=== PATIENT | female | born 1940 | race Caucasian/White ===

== ENCOUNTER → 2019-03-24 12:27 | Outpatient (CLI) | payer MEDICARE, OTHER, SELFPAY ==
--- NOTE | 2019-03-24 | DI.MRI.S_ITS ---
PROCEDURE: MR KNEE LT WO CON INDICATIONS: Pain in left knee TECHNIQUE: Noncontrast sagittal PD fast spin echo and T2 fast spin echo with fat saturation, sagittal 3-D FLASH with fat saturation; coronal T1 spin echo and PD fast spin echo with fat saturation, and axial PD fast spin echo with fat saturation through the knee. COMPARISON: [facility], CR, XR KNEE ARTHRITIC SERIES BI, 03/14/2019, 11:31. [facility], MR, KNEE WITHOUT CONTRAST, 01/14/2017, 10:03. FINDINGS: Image quality: Excellent. Menisci: Medial meniscal tear involving the posterior horn and body with abnormal signal extending to the undersurface. Macerated circumferential lateral meniscal tear involving anterior horn body and posterior horn. Associated 5 mm parameniscal cyst seen involving the posterior horn on image 24 series 7. Partial extrusion is also noted. Cruciate ligaments: Anterior cruciate ligament not well seen and presumably ruptured. Posterior cruciate ligament appears intact although some internal signal changes suggesting low-grade mucoid degeneration versus age-indeterminate mild sprain. Medial structures: There is medial bowing of the medial collateral ligament, with mild internal signal changes and no complete rupture. There is adjacent soft tissue edema. The appearance could reflect reactive changes to medial compartment pathology, versus low-grade sprain of the MCL. Pes anserinus tendons appear grossly unremarkable. Semimembranosus tendon appears mildly thickened and T2 hyperintense in keeping with insertional tendinopathy. Lateral structures: The lateral collateral ligament demonstrates thickening and intrasubstance signal change in keeping with low grade sprain, statistically chronic, although technically age indeterminate. Biceps femoris tendon appears intact. Popliteus tendon grossly unremarkable. Iliotibial band appears intact. Anterior structures: Quadriceps tendon intact. Medial and lateral patellofemoral ligaments intact. There is mild patellar tendinopathy. Prepatellar and superficial infrapatellar subcutaneous edema/fluid. Bones and cartilage: No focal marrow contusion or discrete low signal fracture line. Within the medial compartment, diffuse partial thickness loss of the femoral intra-articular cartilage. Degenerative subchondral cystic change present in the peripheral tibial plateau Within the lateral compartment, diffuse full-thickness loss of femoral and tibial articular cartilage Within the patellofemoral compartment, diffuse partial thickness loss of the femoral trochlear and patellar cartilage Joint space: Large joint effusion. Large Padilla's cyst measuring approximately 6-7 cm in the cephalocaudad dimension. No specific evidence of intra-articular loose body. IMPRESSION: Rupture of the anterior cruciate ligament although this finding may be chronic. Macerated circumferential lateral meniscal tear with partial extrusion and associated para meniscal cyst abutting the posterior horn. Undersurface tear involving the body and posterior horn of the medial meniscus. Mild patellar tendinopathy. Large joint effusion. Large Padilla's cyst. Degenerative joint disease as above. Insertional semimembranosus tendinopathy. Dictated by: Abdias Leo M.D. on 03/24/2019 at 14:42 Approved by: Abdias Leo M.D. on 03/24/2019 at 14:50
== END ==
PROVIDERS: PCP Family Medicine; Visit Provider Orthopaedic Surgery
DX: M25.562 Pain in left knee (principal); S83.242A Other tear of medial meniscus, current injury, left knee, initial encounter; S83.282A Other tear of lateral meniscus, current injury, left knee, initial encounter; S83.512A Sprain of anterior cruciate ligament of left knee, initial encounter; M17.12 Unilateral primary osteoarthritis, left knee; M71.22 Synovial cyst of popliteal space [Baker], left knee; M25.462 Effusion, left knee
CPT/HCPCS: 73721

== ENCOUNTER 2019-06-08 16:47 | Inpatient (IN) | payer MEDICARE, OTHER, SELFPAY ==
[2019-05-25 13:55] VITALS: BMI 28.8
[2019-06-07] VITALS (14 sets, daily range): BP systolic 103–149; BP diastolic 49–79; PULSE 63–82; RESP 12–19; TEMP 36–36.9; O2SAT 91–99; BMI 28.8
--- NOTE | 2019-06-07 06:00 | DI.RAD.S_ITS ---
PROCEDURE: XR KNEE LT 1TO2V INDICATIONS: post op TECHNIQUE: 2 view(s) of the knee acquired. COMPARISON: [facility], , KNEE 1-2 VIEWS RIGHT, 02/24/2017, 13:06. FINDINGS: Bones: Patient is status post knee joint arthroplasty. Hardware components are in expected positions. Visualized bony structures are intact. Soft tissues: Overlying postoperative changes are noted. IMPRESSION: Expected appearance of left knee arthroplasty. Dictated by: Stacy Rowan M.D. on 06/07/2019 at 18:20 Approved by: Stacy Rowan M.D. on 06/07/2019 at 18:20
[2019-06-07] MEDS: PREGABALIN 75 MG CAPSULE PO (11:54)
[2019-06-07] MEDS: ACETAMINOPHEN 325 MG TABLET 975 MG PO (11:54)
[2019-06-07] MEDS: CELECOXIB 200 MG CAPSULE PO (11:55)
[2019-06-07] MEDS: LACTATED RINGERS 1,000 ML 42 ML IV ×2 (11:56→16:35)
[2019-06-07] MEDS: VANCOMYCIN 1,000 MG/200 ML PIGGYBACK 200 MG IV (13:35)
--- NOTE | 2019-06-07 15:07 | PM.PREOP ---
Pre-operative Note Interval Note History & Physical reviewed/Exam performed by Physician: Yes Changes to H&P: No
--- NOTE | 2019-06-07 15:08 | P.OP_ITS ---
Operative Date/Time/Diagnoses Date of procedure: 06/07/19 Time of procedure: 15:20 Pre-op diagnosis: Severe left knee osteoarthritis Post-op diagnosis: same Procedure & Clinicians Procedure: Left total knee arthroplasty Same procedure as scheduled: Yes Indications: The patient has had progressively worsening left knee pain with radiographic changes consistent with arthritis. Non-operative management has failed and the patient has requested total knee replacement. The risks, benefits and alternatives to surgery were discussed with the patient prior to proceeding. Risks discussed included, but were not limited to, failure to relieve pain, stiffness, infection, nerve damage, deep venous thrombosis, pulmonary embolism, stroke, coma, heart attack, permanent paralysis and , as well as the potential need for eventual revision of the prosthetic. Surgeon: Delphine Frazier Electron Beam Photo Mask Maker: Young Teixeira Anesthesia Type: General and Spinal Operative Notes Closure Type: primary Specimen(s): none sent Prosthetic devices, grafts, tissues, transplants, or devices: Frazier and Nephew Journey BCS 2 size 6 femur, size 4 tibia, +10 poly, 35 mm patella Applied: drain(s) Estimated Blood Loss (mL): 250 Blood products transfused: none Tourniquet time (min): 82 Procedure in detail: The patient was seen in the pre-operative area, where the patient identified the left knee as the operative site and this was marked with my initials. The patient received pre-operative antibiotics, and was taken to the operating room and placed on the operative table in the supine position. After satisfactory anesthesia, a aircraft de icer installer out was performed. The left leg was encircled with a tourniquet about the proximal thigh, and the leg was prepared from the toes to the tourniquet with ChloroPrep in the usual fashion and draped through sterile drapes. The leg was elevated and exsanguinated with Eschmark bandage and the tourniquet inflated to [250] mmHg pressure. The knee was approached through an approximately 18 cm incision centered over the patella and carried into the knee through a medial parapatellar arthrotomy. A portion of the medial and lateral meniscus was resected. Soft tissue was carefully mobilized around the patella the patella was measured with a caliper. Bone was resected from the patella and the patellar height was reconstituted with up an appropriate sized patellar component. A cover was then placed on the patella. A small amount of additional medial and lateral meniscus was resected. The visionare guide fit well to the distal femur. It looked like an appropriate distal femoral cut and the cut was made without difficulty. The rotation was assessed and the appropriate size femoral guide was placed on the distal femur and finishing cuts were made. There was no evidence of notching. The anterior, posterior and chamfer cuts were then made. The posterior osteophytes and soft tissues were then removed. The posterior capsule was injected with part of a mixture of 60 ml 0.25% Marcaine mixed with 20 ml Exparel for post operative pain control. The remainder of this mixture was injected into the capsule and subcutaneous tissues during cement curing. The tibia was prepared and the visionaire guide fit well to the distal tibia. The rotation was assessed. The patient was placed in extension residual medial and lateral meniscus as well as any residual bone was carefully resected. [No] additional tibia was resected. Hemostasis was achieved especially posteriorly. Additional local was injected into the posterior capsule. The extension gap was assessed and additional releases for gap balancing were performed as necessary. It was checked with the gap welder operator. The femoral component was trial was placed and the notch was finished. Trial tibial and femoral components were then placed and the knee placed through a range of motion. Range of motion was [0-130], with good stability throughout the range. The trials were then removed, and the tibia was finished. The bone was prepared with pulsatile lavage, and dried with a sponge. Cement was applied and the final prosthetics placed. Excess cement was removed during and after cement curing. A brief Betadine soak was performed. After confirming there was no extruded cement posteriorly, the final tibial insert was placed. The knee was copiously irrigated and the tourniquet deflated. Hemostasis was obtained with the Bovie. A drain was placed and brought out superolaterally. The capsule was closed with interrupted Vicryl suture. The subcutaneous layer was closed with barbed sutures, and the skin with a running 3-0 V-Lock suture and Surgical glue. An Aquacel Ag dressing was applied and the patient was taken to recovery having tolerated the procedure well. Complications: none Post-operative Condition: stable Disposition: Acute Care Plan for aftercare: The patient will be maintained on a standard total knee replacement protocol with weight bearing as tolerated. The patient will receive aspirin and sequential compression devices for DVT prophylaxis. The patient will be discharged home when safe for the home environment.
[2019-06-07] MEDS: CEFAZOLIN 2 GM/100 ML FROZ.PIGGY IV ×2 (15:15→22:17)
--- NOTE | 2019-06-07 15:49 | SUR.OPER ---
Supine on padded OR bed. Pillow under head, arms secured on padded armboards <90 degree abduction. Safety belt across torso. Non-operative leg secured with tape over blanket over lower leg. Operative leg secured in DeMayo/Cristo positioner. Foam padded brace at thigh of operative leg.
[2019-06-07] MEDS: BUPIVACAINE 0.25% W/ EPI (PF) 10 ML VIAL 60 ML INJ (16:00)
[2019-06-07] MEDS: SODIUM CHLORIDE IRRIG SOLUTION 250 ML, POVIDONE-IODINE SPONGE STICKS 1 APPLIC IRR (16:01)
[2019-06-07] MEDS: BUPIVACAINE LIPOSOME 266 MG/20 ML VIAL INJ (16:01)
[2019-06-07] MEDS: TRANEXAMIC ACID 1,000 MG VIAL 1000 MG INJ ×2 (16:01→16:36)
[2019-06-07] MEDS: HYDROMORPHONE 2 MG INJ IV (17:59)
--- NOTE | 2019-06-07 18:19 | SUR.PHASEI ---
Gave pain medication for c/o knee pain. Tolerating po. Refused po pain medication. States it only constipates her. States IV Dilaudid works better.
[2019-06-07] MEDS: LACTATED RINGERS 1,000 ML 125 ML IV (19:05)
[2019-06-07] MEDS: ONDANSETRON 4 MG/2 ML INJ IV (21:19)
[2019-06-08] MEDS: HYDROMORPHONE 2 MG TABLET 4 MG PO ×5 (03:01→21:50)
[2019-06-08] MEDS: LACTATED RINGERS 1,000 ML 125 ML IV (03:07)
[2019-06-08] MEDS: IBUPROFEN 400 MG TABLET PO ×4 (04:39→20:38)
[2019-06-08] MEDS: LEVOTHYROXINE 125 MCG TABLET PO (05:12)
[2019-06-08] MEDS: CEFAZOLIN 2 GM/100 ML FROZ.PIGGY IV (06:24)
[2019-06-08 06:31] VITALS: BP 111/60; PULSE 65; RESP 16; TEMP 36.8; O2SAT 97
[2019-06-08 07:15] LABS: Hematocrit 29.6 % (36-46); Hemoglobin 10.2 g/dL (12.0-16.0)
[2019-06-08 07:56] VITALS: BP 127/62; PULSE 62; RESP 16; TEMP 36.3; O2SAT 94
[2019-06-08] MEDS: DOCUSATE 100 MG CAPSULE PO ×2 (09:41→20:38)
[2019-06-08] MEDS: METFORMIN XR 500 MG TABLET PO (09:41)
[2019-06-08] MEDS: FERROUS SULFATE 325 MG TABLET PO (09:42)
[2019-06-08] MEDS: ACETAMINOPHEN 325 MG TABLET 650 MG PO ×3 (09:42→20:38)
[2019-06-08] MEDS: ASPIRIN EC 81 MG TABLET PO ×2 (09:43→20:38)
--- NOTE | 2019-06-08 10:18 | PT.IIE ---
Current Diagnoses Unilateral primary osteoarthritis, left knee (06/07/19) Surgery Performed Operation Date: 06/07/19 13:15 Actual Procedures p Total Knee Arthroplasty(Left) - Delphine Frazier MD Surgical History (Last Updated 05/25/19 @ 14:46 by Yanira Krueger, RN) History of arthroplasty of right knee (Acute 02/24/17) Medical History (Last Updated 05/25/19 @ 14:46 by Yanira Krueger RN) Allergic rhinitis (Acute) Anemia (Acute) Arthritis (Acute) Asthma (Acute) Bilateral cataracts (Acute) Former smoker (Acute) Influenza (Acute ~07/2018) Irregular heart beats (Acute) Lung nodule seen on imaging study (Acute ~12/2018) Old inferior wall myocardial infarction (Acute) Pneumonia (Acute ~08/2018) UTI (urinary tract infection) (Acute) Physical Therapy Inpatient Evaluation/Re-Eval M1 PT/OT-IP Prior Functional Status Start: 06/08/19 12:03 Freq: NEEDED Status: Active Protocol: Document 06/08/19 10:18 AB (Rec: 06/08/19 12:22 AB [id number]) Medical Review Prior Functional Status Medical History Reviewed Yes Communication able to make needs known Mobility and Gait pt stated that she is modified independent with all mobilities and ambulation without AD but occasionally uses a SPC depending on knee pain Social History Household Members spouse,children Living Arrangements House Number of Floors (Floors) Two Floors Number of Stairs To Enter/Railing? 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; son from [place] will stay with pt to assist M2 PT-IP Current Condition Start: 06/08/19 12:03 Freq: NEEDED Status: Active Protocol: Document 06/08/19 10:18 AB (Rec: 06/08/19 12:22 AB [id number]) Physical Therapy Current Condition Current Condition Evaluation Date 06/08/19 Treatment Diagnosis s/p L TKA; difficulty in walking Onset Date 06/07/2019 Weight Bearing Status Weight Bearing Status Weight Bear as Tolerated Allowed Weight Bearing Amount (enter % LLE WBAT or #) (%) M3 PT-IP Subjective Start: 06/08/19 12:03 Freq: NEEDED Status: Active Protocol: Document 06/08/19 10:18 AB (Rec: 06/08/19 12:22 AB [id number]) Subjective Physical Therapy Visit Type Type Initial Evaluation Visit Start Time 10:18 Visit Stop Time 10:52 Total Visit Minutes 34 Number of TRANSIT MIXER OPERATOR Visits 0 Physical Therapy Visit Comments Patient Comments pt agreeable to do PT Therapy Pain Assessment Pain When Pain Assessed During Mobility Pain Present Pain Present Pain Reported Location Left Knee Scale Used pain scale not stated but c/o nausea due to pain Pain Management Techniques Apply Cold,Re-positioning, Timing of Activity with Medications M4 PT-IP Mobility and Gait Start: 06/08/19 12:03 Freq: NEEDED Status: Active Protocol: Document 06/08/19 10:18 AB (Rec: 06/08/19 12:22 AB [id number]) PT-Bed Mobility Assessment Sit to Supine Sit to Supine Standby Assistance,1 Person Assistance PT-Transfer Assessment Sit to and From Stand Sit to and from Stand Minimal Assistance,1 Person Assistance,Use of Upper Extremities Equipment Transfer Assistive Device Gait Belt,Front Wheeled Walker Orthotic/Prosthetic Devices or Brace: No Transfers Transfer Destination Bed Transfer Technique ambulated using FWW Transfer Ability Level of Assist Minimal Assistance,1 Person Assistance,Use of Upper Extremities Comments Mobility Comments pt sitting on chair and stated no pain at rest. completed sit to stand min A and cues. c/o increase knee pain during mobility and weight bearing. instructed to ambulated to the bed and midway of ambulation c/o nausea and stated that her pain is too much. instructed to ambulated to the bed to sit and completed min A and cues. pt requested to just stay in bed. completed sit to supine SBA. positioned in bed. call light and table placed within reach. informed nurse that pt c/o increase pain and at this time, not ready to d/c home. Gait Assessment Gait Gait Assistance Required: Minimum Assistance Distance (Feet) 12 Able to Maintain Weight Bearing Status Yes During Gait Assistive Devices Assistive Device Gait Belt,Front Wheeled Walker Orthotic/Prosthetic Devices or Brace: No Gait Deviations General Gait Pattern Antalgic,Decreased Stride Length,Decreased Feet Clearance,Step-to Gait Factors Limiting Gait Function Factors Limiting Gait Function Decreased Activity Tolerance, Decreased Strength,Limited Range of Motion,Pain,Poor Balance Comments Gait Comments pls refer to mobility section. PT-Balance Assessment Sitting Balance and Reactions Static Sitting Balance Ability Good Dynamic Sitting Balance Ability Good Standing Balance and Reactions Static Standing Balance Ability Fair Dynamic Standing Balance Ability Fair Device Used FWW M5 PT-IP Objective Assessments Start: 06/08/19 12:03 Freq: NEEDED Status: Active Protocol: Document 06/08/19 10:18 AB (Rec: 06/08/19 12:22 AB [id number]) Orientation Orientation/Cognition Level of Alertness Alert Orientation Name,Place,Situation Safety Awareness Decreased Safety Awareness Memory Description Short Term Impaired Gross Range of Motion Lower Extremity ROM Impairments L knee flexion: ~ 80 deg Strength Lower Extremity Strength Assessment Left Impaired Hip 3+/5 Knee 3+/5 Coordination Assessment Gross Coordination Gross Coordination WNL Sensation Assessment Sensation Gross Sensation WNL Muscle Tone Muscle Tone WNL Yes M6 PT-IP Treatment Start: 06/08/19 12:03 Freq: NEEDED Status: Active Protocol: Document 06/08/19 10:18 AB (Rec: 06/08/19 12:22 AB [id number]) Physical Therapy Treatment Education Education Provided Precautions,Weight Bearing Status,Post-Op Packet,Safety M7 PT-IP Assessment and Plan Start: 06/08/19 12:03 Freq: NEEDED Status: Active Protocol: Document 06/08/19 10:18 AB (Rec: 06/08/19 12:22 AB [id number]) PT Summary Assessment and Plan Potential Rehabilitation Potential Good Status of Condition at Evaluation Evolving Summary Impairments Pain,ROM,Strength,Balance, Coordination,Bed Mobility, Transfers,Gait,Activity Tolerance Assessment Summary pt unable to tolerate much activity this morning with c/o nausea due to increase knee pain. pt requires min A for transfers and was only able to ambulate ~ 12 ft using FWW. d/c plan depending on progress . will continue to assess progress. Goals Bed Mobility Goal Independent Transfer Goal Independent,Front Wheeled Walker Gait Goal Independent,Front Wheel Walker Gait Distance 150 Other Goals up/down 20 steps R rail ascending SBA Days to Meet Goals 5 Frequency of Treatment Frequency Of Treatment Twice a Day Treatment Plan Physical Therapy Treatment Plan Bed Mobility Training,Transfer Training,Gait Training, Therapeutic Exercise,Balance Retraining,Post Op Education, Discharge Planning,Hot or Cold Pack,Neuromuscular Re-ed, Coordination Retraining,Manual Therapy Other Recommendations and Next Treatment ambulation, stair climbing, Focus caregiver training when appropriate Recommendations To Nursing Amount of Assist Needed 1 Person Assist Discharge Recommendations PT Discharge Recommendations Home with 08/12 Assist,Home Health,SNF Rehab,Outpatient PT Other Discharge Recommendations SNF vs home 08/12/HHPT/outpt PT : depending on progress
--- NOTE | 2019-06-08 11:04 | PC.NURSE ---
Addendum entered by Patricia Portillo R.N. 06/08/19 15:24: PAIN/GI - pt up with phys therapy x1 w/fww, ambul in room to br, voided and ret to chair, had a small clear light green emesis approx 25ml, states her pain 7 on scale 0/10 after mobilizing, PT placed in chair with pillow support, ice pack, reported symptoms to Tiffanie on nancy shift at bedside report. Addendum entered by Patricia Portillo R.N. 06/08/19 14:14: GI/PAIN - earlier zofran relieved nausea, states pain at rest is 2 9 when I move and would like dilaudid, given 4mg po w/crackers. Addendum entered by Patricia Portillo R.N. 06/08/19 13:37: INTEG/GI/PAIN - some serosang drainage from old hemovac site, removed dsg, cleaned and replaced, pt ate few bites lunch, continues with underlying nausea, pain lle, discussed medications and did agree to 4mg sl zofran prior to dilaudid, pt states she wants to continue with po dilaudid even if it makes me sick. Original Note: AM NOTE - pt assisted to dangle position, slowly ambul x1 person w/fww to br, voided and ret to chair, states pain 4 on scale 0/10, aquacell w/to wrap cdi, hemovac clamped x 2 hours per new order from ortho PA prior to dc, denies nausea this am, + flatus, discussed pain mgt prior to phys therapy, given scheduled tylenol and ibuprofen and given 4mg po dilaudid.
[2019-06-08 11:19] VITALS: BP 106/59; PULSE 57; RESP 16; TEMP 36.7; O2SAT 95
[2019-06-08] MEDS: ONDANSETRON 4 MG ODT PO (13:14)
--- NOTE | 2019-06-08 14:06 | CM.DANOTE ---
DCP/Assessment: Reviewed chart. Patient admitted to [facility] for left TKA performed on 06-07-[address] Frazier. Primary payor is 1)Medicare 2)[employer] [facility]. Met with patient this AM explained CM/SW role. Patient alert and oriented during visit. Patient reports that she plans to go home today. Patient awaiting therapy evaluations. Patient cares for disabled spouse but has 2 sons that are helping in the home during patient's recovery. Patient has outpatient therapy arranged at [facility] [place] Patient reports that she has all needed DME. P: Anticipate home today if cleared by therapy and stable. ANGELA Patel Discharge Planning/Care Management Advanced directive, confirm from FAMILY Start: 06/07/19 18:46 Freq: Q24H Status: Active Protocol: Document 06/07/19 18:59 EM (Rec: 06/07/19 18:59 EM [id number]) Advance Directive, confirm on record Time 18:59 Person contacted Mary Copy received No CM Discharge Assessment Start: 06/08/19 14:04 Freq: Status: Active Protocol: Document 06/08/19 14:04 KJS (Rec: 06/08/19 14:06 KJS [id number]) Discharge Planning Assessment Assigned Personal Coach ANGELA Patel Advance Directives? Yes History Provided By Patient,Medical Record Prior Living Arrangements House Household Members spouse,children Type of transporation used prior to Drives own vehicle admit Independent with ADL's Yes Is patient alert and oriented? Yes Caregiver for Another Yes: spouse is disabled DME Already Rented / Owned FWW / Walker Patient/Family Preference OP PT Therapy Barriers to Discharge No Discharge Plan Home Transportation Arrangement Family to provide transport Whiteboard Updated in Patient Room with Yes name and ext. 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 Reviewed Via Phone Assessment Assessment Completed With Patient Comment Per pt labs/EKG done, surgeon has it, they're ok, not available @ present Primary Care Provider Micky Bautista Seen Specialist in Last 12 Months Yes Specialist Seen Orthopedist Primary Language Ukrainian Emergency Telecommunications Dispatcher Required No Height 172.72 cm Weight 86.183 kg Body Mass Index (BMI) 28.8 Hearing Ability Normal Visual Assist Glasses Dentition Type Teeth, Natural Present,Teeth, Missing Barriers to Learning None Hx Anesthesia Reactions No Hx Family Anesthesia Reaction No Hx Malignant Hyperthermia No Hx Blood Transfusions No Anesthesia Review Requested No alcohol intake current alcohol intake frequency a few times a month Smoking Status Former smoker Tobacco type cigarettes how long ago did patient quit smoking Quit 1979 Substance Use Type does not use Pain Present Pain Reported Musculoskeletal Symptoms Abnormal Gait,Back Pain, Difficulty Walking,Joint Pain History of Falling (Recent or History of Yes ) Patient is completely paralyzed or No completely immobile Prosthesis or Orthotic Device Cane Mental Status Oriented to own ability Is patient on oxygen? No Does patient have CARLSON/SOB No Hx Sleep Apnea No Currently Taking a Beta Radha No Can You Climb a Flight of Stairs Without Yes SOB Hx Chest Pain No Hx SOB No Hx Syncope or Dizziness No Anti-Coagulant Therapy No Has a Per Diem Nurse No Cardiac Testing No Hx Pacemaker/ICD No Pacemaker Rep Required? No Cardiac Clearance Received Not Applicable Diet Type At Home Regular dysphagia No Bladder Pattern Frequency,Incontinent,Urgency Urinary Catheter Present No Hx Urinary Self Catheterization No Diabetes No Patient No Lactating No Presence of External or Internal Medical Yes: Right knee prosthesis Devices Have you traveled outside the [facility] States in the last 30 days? Marital Status Lives With spouse,children Prior Living Arrangements House Number of Floors (Floors) Two Floors Support System Child/Children Does the Patient Have Assistance After Yes: is disabled, son Surgery will assist with care at [place] Patient Discharge Plan Description Return Home Comment Pt not advised on length of stay per surgeon's office Feels Safe in Current Environment Yes Been Physically Hurt or Threatened By a No Person in Current Environment Do you have thoughts of harming yourself None or others? Are you currently considering suicide? No Do you have a plan to hurt yourself or No Plan others? Do You Have Any Spiritual Beliefs That No May Affect Your HC Choices? Do You Have Any Cultural Practices That No May Affect Your HC Choices? Spiritual Referral Zoroastrianism clergy/Lay clipper automatic visit Comment Zoroastrianism Who Can We Speak to About Patient's Care Family, friends Identifying Code for Release of Patient Declines to issue Information Health Care Proxy/Next of Kin Ziggy (son) Health Care Proxy Emergency Contact Name Ziggy (son) Emergency Contact Advance Directives? Yes Power of Radiographer No PAC Instructions Do not shave/clip surgical site,Durable medical equipment ,Medications to take/avoid, Nasal antibiotic,No ETOH/ petroleum product on skin DOS, NPO,Post-op transportation,Pre -surgical wash,Sturdy shoes/ comfortable clothes,Do not bring valuables and remove jewelry
--- NOTE | 2019-06-08 15:11 | PT.IPTN ---
Current Diagnoses Unilateral primary osteoarthritis, left knee (06/07/19) Surgery Performed Operation Date: 06/07/19 13:15 Actual Procedures p Total Knee Arthroplasty(Left) - Delphine Frazier MD Physical Therapy Treatment Note M2 PT-IP Current Condition Start: 06/08/19 12:03 Freq: NEEDED Status: Active Protocol: Document 06/08/19 10:18 AB (Rec: 06/08/19 12:22 AB [id number]) Physical Therapy Current Condition Current Condition Evaluation Date 06/08/19 Treatment Diagnosis s/p L TKA; difficulty in walking Onset Date 06/07/2019 Weight Bearing Status Weight Bearing Status Weight Bear as Tolerated Allowed Weight Bearing Amount (enter % LLE WBAT or #) (%) M3 PT-IP Subjective Start: 06/08/19 12:03 Freq: NEEDED Status: Active Protocol: Document 06/08/19 15:11 AB (Rec: 06/08/19 16:37 AB [id number]) Subjective Physical Therapy Visit Type Type Treatment Note Visit Start Time 15:11 Visit Stop Time 15:27 Total Visit Minutes 16 Number of OUTBOUND CALL CENTER REPRESENTATIVE Visits 0 Physical Therapy Visit Comments Patient Comments pt agreed to do PT Therapy Pain Assessment Pain When Pain Assessed During Mobility Pain Present Pain Present Pain Reported Location Left Knee Intensity 7 Scale Used Numeric (1 - 10) Pain Management Techniques Apply Cold,Re-positioning, Timing of Activity with Medications M4 PT-IP Mobility and Gait Start: 06/08/19 12:03 Freq: NEEDED Status: Active Protocol: Document 06/08/19 15:11 AB (Rec: 06/08/19 16:37 AB [id number]) PT-Bed Mobility Assessment Supine to Sit Supine to Sit Standby Assistance Scooting Scooting to Edge of Bed Standby Assistance PT-Transfer Assessment Sit to and From Stand Sit to and from Stand Contact Guard Assistance,1 Person Assistance,Use of Upper Extremities Equipment Transfer Assistive Device Gait Belt,Front Wheeled Walker Orthotic/Prosthetic Devices or Brace: No Transfers Transfer Destination Chair Transfer Technique ambulated using FWW Transfer Ability Level of Assist Minimal Assistance,1 Person Assistance,Use of Upper Extremities Comments Mobility Comments pt completed supine to sit SBA . completed sit to stand CGA and cues. ambulated towards the chair and midway, c/o nausea with (+) emesis. instructed pt to sit on EOB. nurse came in and aware of pt' s complaints. pt initially wants to go back in bed but agreed to sit up on chair. completed sit to stand CGA and took a few steps towards the chair min A. positioned pt on chair. call light and table placed within reach. refused further ambulation. Gait Assessment Gait Gait Assistance Required: Minimum Assistance,1 Person Assist Distance (Feet) 10 Able to Maintain Weight Bearing Status Yes During Gait Assistive Devices Assistive Device Gait Belt,Front Wheeled Walker Orthotic/Prosthetic Devices or Brace: No Gait Deviations General Gait Pattern Antalgic,Decreased Stride Length,Decreased Feet Clearance Factors Limiting Gait Function Factors Limiting Gait Function Decreased Activity Tolerance, Decreased Strength,Limited Range of Motion,Pain,Poor Balance,Poor Safety Awareness Comments Gait Comments pls refer to mobility section for details pt presents with antalgic gait and increase UE use on FWW for support M5 PT-IP Objective Assessments Start: 06/08/19 12:03 Freq: NEEDED Status: Active Protocol: Document 06/08/19 10:18 AB (Rec: 06/08/19 12:22 AB [id number]) Orientation Orientation/Cognition Level of Alertness Alert Orientation Name,Place,Situation Safety Awareness Decreased Safety Awareness Memory Description Short Term Impaired Gross Range of Motion Lower Extremity ROM Impairments L knee flexion: ~ 80 deg Strength Lower Extremity Strength Assessment Left Impaired Hip 3+/5 Knee 3+/5 Coordination Assessment Gross Coordination Gross Coordination WNL Sensation Assessment Sensation Gross Sensation WNL Muscle Tone Muscle Tone WNL Yes M6 PT-IP Treatment Start: 06/08/19 12:03 Freq: NEEDED Status: Active Protocol: Document 06/08/19 15:11 AB (Rec: 06/08/19 16:37 AB [id number]) Physical Therapy Treatment Exercises Exercises Quad Sets Education Education Provided Weight Bearing Status,Safety M7 PT-IP Assessment and Plan Start: 06/08/19 12:03 Freq: NEEDED Status: Active Protocol: Document 06/08/19 15:11 AB (Rec: 06/08/19 16:37 AB [id number]) PT Summary Assessment and Plan Potential Rehabilitation Potential Good Summary Impairments Pain,ROM,Strength,Balance, Coordination,Sensation,Tone, Cognition,Bed Mobility, Transfers,Gait,Activity Tolerance Progress Towards Goals Slow Progress due to Pain,Slow Progress due to Activity Tolerance Assessment Summary pt continues to c/o nausea with mobility/weight bearing and increase pain on L knee affecting activity tolerance and level of assistance. pt unable to walk much and only tolerated ~ 10 ft of amulation using FWW min A and cues. continues to rely heavily on UE on FWW for support. Pt has 20 steps to get into the house and at this time is not appropriate to do stair climbing. d/c plan depending on mobility progress. will have to conduct caregiver training when appropriate. will continue to assess. Goals Bed Mobility Goal Independent Transfer Goal Independent,Front Wheeled Walker Gait Goal Independent,Front Wheel Walker Gait Distance 150 Other Goals up/down 20 steps R rail ascending SBA Days to Meet Goals 5 Frequency of Treatment Frequency Of Treatment Twice a Day Treatment Plan Physical Therapy Treatment Plan Bed Mobility Training,Transfer Training,Gait Training, Therapeutic Exercise,Balance Retraining,Post Op Education, Discharge Planning,Hot or Cold Pack,Neuromuscular Re-ed, Coordination Retraining,Manual Therapy Other Recommendations and Next Treatment ambulation, stair climbing, Focus caregiver training when appropriate Recommendations To Nursing Amount of Assist Needed 1 Person Assist Discharge Recommendations PT Discharge Recommendations Home with 08/12 Assist,Home Health,SNF Rehab,Outpatient PT Other Discharge Recommendations SNF vs home //HHPT/outpt PT : depending on progress
[2019-06-08 16:01] VITALS: BP 134/65; PULSE 70; RESP 20; TEMP 36.7; O2SAT 95
[2019-06-08 19:50] VITALS: BP 140/74; PULSE 78; RESP 20; TEMP 37.1; O2SAT 93
[2019-06-08] MEDS: ONDANSETRON 4 MG/2 ML INJ IV (22:04)
[2019-06-08 23:55] VITALS: BP 129/71; PULSE 74; RESP 18; TEMP 36.8; O2SAT 94
[2019-06-09] MEDS: IBUPROFEN 400 MG TABLET PO ×5 (00:53→19:09)
[2019-06-09] MEDS: HYDROMORPHONE 2 MG TABLET 4 MG PO ×6 (00:55→19:09)
--- NOTE | 2019-06-09 02:23 | PC.NURSE ---
0110 Patient is alert and oriented. Breath sounds diminished at bases with inspiratory crackles in right LL; RA sat 94%. Patient verbalizes understanding re: need to use I.S./CDB. HRR. Denies nausea. BT present; passing flatus. Chronic urinary urgency/dribbles but denies dysuria or frequency. Able to move self in bed. Up to bathroom with walker and 1 assist due to weakness in left LE. Aquacel dressing + to wrap to left knee is CDI; hemovac site dressing is CDI. CMS is intact. Wearing calf SCD's on right leg only. Complains of 3/10 dull pain when lying still and 6/10 sharp pain with movement; requested/medicated with po Dilaudid in addition to scheduled Ibuprofen and ice applied. Fall risk score is high and bed alarm is activated.
--- NOTE | 2019-06-09 04:22 | PC.NURSE ---
Patient reports knee pain 10/25 and requested and received Dilaudid 4mg po
[2019-06-09 04:49] VITALS: BP 143/72; PULSE 73; RESP 16; TEMP 36.2; O2SAT 95
[2019-06-09] MEDS: LEVOTHYROXINE 125 MCG TABLET PO (06:12)
[2019-06-09 08:00] VITALS: BP 166/76; PULSE 82; TEMP 36.5; O2SAT 95
[2019-06-09] MEDS: ACETAMINOPHEN 325 MG TABLET 650 MG PO ×3 (08:15→20:13)
[2019-06-09] MEDS: METFORMIN XR 500 MG TABLET PO (08:16)
--- NOTE | 2019-06-09 09:00 | PM.DS.1 ---
History of Present Illness History of Present Illness Date Patient Seen: 06/09/19 Time Patient Seen: 09:01 Chief complaint: Left Total Knee Arthoplasty Discharge Providers Provider Date of admission: 06/07/19 10:54 Primary care physician: Micky Bautista MD Consults: 06/07/19 06:00 Consult to Anesthesiology Routine Comment: Consulting Provider: Anesthesiologist Reason for consultation: Regional block for post operative pain control 06/07/19 18:35 Consult to Discharge Planning Routine Comment: Consult to Physical Therapy Evaluate & Treat Comment: Physician Instructions: postop TKA protocol Consult to Respiratory Therapy Evaluate & Treat Comment: Physician Instructions: Evaluate and treat Discharge provider: Betito Teixeira PA-C Exam Vital Signs (past 8 hours): - 06/09/19 04:49 06/09/19 08:00 Temperature 97.2 F L 97.7 F Pulse Rate 73 82 Respiratory Rate 16 Blood Pressure 143/72 H 166/76 H Pulse Oximetry 95 95 Oxygen Delivery Method Room Air Oxygen Flow Rate 0 Objective Labs Result Diagrams: 06/08/19 06:52 Discharge Plan Discharge Plan Patient Disposition: Home Discharge orders & Medications Prescriptions: New hydromorphone [Dilaudid] 2 mg tablet 2 mg PO Q4-6H PRN (Reason: pain) Qty: 40 RF: 0 aspirin 81 mg tablet,delayed release (DR/EC) 81 mg PO BID Qty: 60 RF: 0 Continued levothyroxine [Synthroid] 125 MCG tablet 0.125 mg PO QDAY Qty: 0 RF: 0 metformin [Glucophage XR] 500 MG tablet extended release 24 hr 500 mg PO QDAY Qty: 0 RF: 0 losartan-hydrochlorothiazide 100 MG/12.5 MG tablet 1 tab PO QDAY Qty: 0 RF: 0 acetaminophen 325 MG tablet 500 mg PO Q4HP PRN (Reason: Pain) RF: 0 ferrous sulfate 325 mg (65 mg iron) Tablet 325 mg PO DAILY RF: 0 ibuprofen 200 mg Tablet 400 - 600 mg PO QAM RF: 0 loratadine 10 mg Tablet 10 mg PO DAILY PRN (Reason: Allergy Symptoms) RF: 0 Follow up/Referrals: Micky Bautista MD [Primary Care Provider] - Delphine Frazier MD [Physician] - As previously scheduled Diet/Activity/Treatments Diet: Regular Activity: weightbearing as tolerated. follow joiner path protocol for total knee arthroplasty Cold/Heat Therapy: continue cold therapy as needed Skin/Wound/Dressing Care Report to your healthcare provider any signs of infection, such as:: chills, fever, increased pain, unusual drainage and unusual redness Dressing: keep dressing dry. can shower, do not soak (e.g. bath) Visit Report/Discharge Packet Instructions: DI for Knee Replacement, DI for Constipation, How to Prevent Falls, DI for Prescription Opioid Use Stand Alone Forms: Surgery Discharge Discharge Data Primary Care Provider: Micky Bautista
[2019-06-09] MEDS: ASPIRIN EC 81 MG TABLET PO ×2 (09:30→20:13)
[2019-06-09] MEDS: DOCUSATE 100 MG CAPSULE PO ×2 (09:30→20:13)
[2019-06-09] MEDS: FERROUS SULFATE 325 MG TABLET PO (09:30)
[2019-06-09] MEDS: LOSARTAN 50 MG TABLET 100 MG PO (09:31)
[2019-06-09] MEDS: POLYETHYLENE GLYCOL 3350 17 GM POWD.PACK PO (09:32)
[2019-06-09] MEDS: SODIUM CHLORIDE 0.9% FLUSH 10 ML IV ×2 (09:32→20:14)
[2019-06-09] MEDS: hydroCHLOROthiazide 12.5 MG CAPSULE PO (09:32)
--- NOTE | 2019-06-09 10:08 | PC.NURSE ---
Addendum entered by Patricia Portillo R.N. 06/09/19 14:56: DC/SS - spoke to Kinza in [place] who discussed options with pt as per Kinza pt is observ, the spouse then called in very angry, pt also angry stating they were promised the pt could stay if medically necessary, I again spoke to Kinza in [place] and I sent a fax to Dr. Frazier who is in surgery. Addendum entered by Patricia Portillo R.N. 06/09/19 11:40: MS/PAIN - per phys therapy, pt was unable to navigate stairs an there are 20 steps in her split level house w/no br on lower level, recommend snf, spoke to Eduardo VILLALOBOS who will inform Dr. Frazier that the dc will have to be cancelled. After return, given 4mg po dilaudid with applesauce for pain 4 on scale 0/10. Addendum entered by Patricia Portillo R.N. 06/09/19 11:22: MS/PT - using fww, ambul slowly out into hallway with phys therapy, then to for stair practice. Original Note: AM NOTE - pt easily awakens, states pain has increased to 7- 8 on scale 0/10, I get nauseated if I'm in pain, given 4mg po dilaudid with the scheduled tylenol, aquacell dsg cdi, per pt request, ortho PA removed the to wrap, small spot shadow drainage prev hemovac site, d, i, + bt, passing flatus, discussed constipation and narcotics and added miralax this am, coarse crackles r mid to lower, enc freq use IS and pt demonstrated correct use to [id number].
--- NOTE | 2019-06-09 11:48 | PT.IPTN ---
Current Diagnoses Unilateral primary osteoarthritis, left knee (06/07/19) Surgery Performed Operation Date: 06/07/19 13:15 Actual Procedures p Total Knee Arthroplasty(Left) - Delphine Frazier MD Physical Therapy Treatment Note M2 PT-IP Current Condition Start: 06/08/19 12:03 Freq: NEEDED Status: Active Protocol: Document 06/08/19 10:18 AB (Rec: 06/08/19 12:22 AB [id number]) Physical Therapy Current Condition Current Condition Evaluation Date 06/08/19 Treatment Diagnosis s/p L TKA; difficulty in walking Onset Date 06/07/2019 Weight Bearing Status Weight Bearing Status Weight Bear as Tolerated Allowed Weight Bearing Amount (enter % LLE WBAT or #) (%) M3 PT-IP Subjective Start: 06/08/19 12:03 Freq: NEEDED Status: Active Protocol: Document 06/09/19 11:08 SP (Rec: 06/09/19 13:07 SP [email or web address]) Subjective Physical Therapy Visit Type Type Treatment Note Visit Start Time 11:08 Visit Stop Time 11:48 Total Visit Minutes 40 Number of EFFICIENCY CLERK Visits 1 Physical Therapy Visit Comments Patient Comments Pt agreed to PT. Therapy Pain Assessment Pain When Pain Assessed During Mobility Pain Present Pain Present Pain Reported Location Left Knee Intensity 5 Scale Used 5/10 at rest, 7/10 during mobility Pain Management Techniques Apply Cold,Re-positioning, Timing of Activity with Medications M4 PT-IP Mobility and Gait Start: 06/08/19 12:03 Freq: NEEDED Status: Active Protocol: Document 06/09/19 11:08 SP (Rec: 06/09/19 13:07 SP [id number]) PT-Bed Mobility Assessment Sit to Supine Sit to Supine Standby Assistance PT-Transfer Assessment Sit to and From Stand Sit to and from Stand Standby Assistance,Use of Upper Extremities Equipment Transfer Assistive Device Gait Belt,Front Wheeled Walker Orthotic/Prosthetic Devices or Brace: No Transfers Transfer Destination Bed Transfer Technique ambulated using FWW Transfer Ability Level of Assist Contact Guard Assistance,Use of Upper Extremities Comments Mobility Comments Pt was up in chair when arrived, able to reposition chair herself with RLE for BLE on floor. Pt completed sit to stand SBA using FWW. Pt ambulated into hallway, required seated rest break due to decreased pain tolerance in followed w/c good hand placement cued for slow controlled descent flopped into w/chair and required FWW positioning fully backing up to bed when returned to room prior to sitting with good controlled descent. Complete sitting to supine when returned from walk/stairs SBA using SPC to support LLE into bed with HOB flat and ableto scoot up in bed herself. Pt had call light and all needs in reach when left. Gait Assessment Gait Gait Assistance Required: Standby Assistance Distance (Feet) 50 Able to Maintain Weight Bearing Status Yes During Gait Assistive Devices Assistive Device Gait Belt,Front Wheeled Walker Orthotic/Prosthetic Devices or Brace: No Gait Deviations General Gait Pattern Antalgic,Decreased Stride Length,Decreased Feet Clearance,Step-to Gait Factors Limiting Gait Function Factors Limiting Gait Function Decreased Activity Tolerance, Decreased Strength,Limited Range of Motion,Pain,Poor Balance,Poor Safety Awareness Comments Gait Comments Pt was able to walk further distances but still limited to pain tolerance, c/o nausea - emesis during second gait distance 120 ft using FWW SBA with w/c follow secondary to decreased strength and pain tolerance, demonstrated step to gait initially then cued for L knee flexion and heel toe with little increased in stride length but not fully step over step. Stair Climbing Assessment Evaluation Level of Assist On Stairs Minimal Assistance,1 Person Assistance Devices Stair Climbing Assistive Devices Straight Cane,Left Railing Technique/Endurance Stair Climbing Direction Ascend Stair Climbing Technique Step to Step Number of Steps Climbed 1 Stair Climbing Set # Repetitions (reps) 1 Comments Stair Climbing Comments Pt attempted 3 stair mgt but only able to complete step up and retrostep back down onto 1st stair usign L HR and SPC in RUE with Min A and demonstrated unsteady L knee during RLE transition. Pt stated couldn't go anyfurther due to pain I can't do anymore, need to come back down. Pt needs to complete 20 stairs using 1 HR to get from bedroom downstairs to rest of living quarters at home including bathroom. PT-Balance Assessment Sitting Balance and Reactions Static Sitting Balance Ability Good Dynamic Sitting Balance Ability Good Standing Balance and Reactions Static Standing Balance Ability Fair Dynamic Standing Balance Ability Fair Device Used FWW M5 PT-IP Objective Assessments Start: 06/08/19 12:03 Freq: NEEDED Status: Active Protocol: Document 06/08/19 10:18 AB (Rec: 06/08/19 12:22 AB [id number]) Orientation Orientation/Cognition Level of Alertness Alert Orientation Name,Place,Situation Safety Awareness Decreased Safety Awareness Memory Description Short Term Impaired Gross Range of Motion Lower Extremity ROM Impairments L knee flexion: ~ 80 deg Strength Lower Extremity Strength Assessment Left Impaired Hip 3+/5 Knee 3+/5 Coordination Assessment Gross Coordination Gross Coordination WNL Sensation Assessment Sensation Gross Sensation WNL Muscle Tone Muscle Tone WNL Yes M6 PT-IP Treatment Start: 06/08/19 12:03 Freq: NEEDED Status: Active Protocol: Document 06/09/19 11:08 SP (Rec: 06/09/19 13:07 SP [email or web address]) Physical Therapy Treatment Exercises Exercises Ankle Pumps,Gluteal Sets,Quad Sets,Heel Slides,Seated Knee Flexion/Extension Education Education Provided Weight Bearing Status,Post-Op Packet,Safety M7 PT-IP Assessment and Plan Start: 06/08/19 12:03 Freq: NEEDED Status: Active Protocol: Document 06/09/19 11:08 SP (Rec: 06/09/19 13:07 SP [email or web address]) PT Summary Assessment and Plan Potential Rehabilitation Potential Good Status of Condition at Evaluation Evolving Summary Impairments Pain,ROM,Strength,Balance, Coordination,Sensation,Tone, Cognition,Bed Mobility, Transfers,Gait,Activity Tolerance Progress Towards Goals Slow Progress due to Pain,Slow Progress due to Activity Tolerance Assessment Summary pt continues to c/o nausea (- emesis) with mobility/weight bearing and increase pain on L knee 11/24 affecting activity tolerance. Pt able to walk further but required w /c follow in hallway 50 ft then 120 ft using FWW SBA. Continues to rely heavily on UE on FWW for support. Pt has 20 steps to get from downstair bedroom at enterance level to the rest of the house and at this time is not able to complete, unsteady LLE and increased pain requiring Min A , see mobility comments. Recommend DC plan to SNF for skilled PT progress strength, 20 stair mgt for increased independence in functional mobility, complete caregiver training when appropriate with son, unable to assist due to medical issues. Pt verbal understanding and recommended [facility]. Goals Bed Mobility Goal Independent Transfer Goal Independent,Front Wheeled Walker Gait Goal Independent,Front Wheel Walker Gait Distance 150 Other Goals up/down 20 steps R rail ascending SBA Days to Meet Goals 5 Frequency of Treatment Frequency Of Treatment Twice a Day Treatment Plan Physical Therapy Treatment Plan Bed Mobility Training,Transfer Training,Gait Training, Therapeutic Exercise,Balance Retraining,Post Op Education, Discharge Planning,Hot or Cold Pack,Neuromuscular Re-ed, Coordination Retraining,Manual Therapy Other Recommendations and Next Treatment pain control to increase Focus distance ambulation, stair climbing, caregiver training when appropriate with son. Recommendations To Nursing Amount of Assist Needed 1 Person Assist Discharge Recommendations PT Discharge Recommendations SNF Rehab Other Discharge Recommendations SNF: [facility] secondary to decrease progress.
[2019-06-09 13:00] VITALS: BP 123/76; PULSE 106; RESP 18; TEMP 36.8; O2SAT 94
--- NOTE | 2019-06-09 16:19 | PM.PNPO.1 ---
Subjective Subjective Date Patient Seen: 06/09/19 Time Patient Seen: 07:30 Interval history: POD #2 s/p LTKA with Dr. Frazier. Overnight nursing staff reports crackles at base of lungs. Patient states pain has improved since yesterday. Pain is located in left knee and well managed with dilaudid, tylenol and ibuprofen. Voiding without difficulty or assistance. Ambulating to the bathroom on own. Progressing slowly with PT secondary to pain and not able to pass 'steps' today. She has multiple steps at home and PT is currently recommending SNF. Discussed discharge plan with patient, she would like to avoid SNF and discharge home tomorrow with assistance from her son or home health services. Patient denies fever, chills, chest pain, shortness of breath, numbness, tingling. Exam Vital Signs (past 8 hours): - 06/09/19 13:00 Temperature 98.2 F Pulse Rate 106 H Respiratory Rate 18 Blood Pressure 123/76 Pulse Oximetry 94 Oxygen Delivery Method Room Air Oxygen Flow Rate 0 Narrative Exam Narrative: 78 year old female is sitting comfortably in chair, in no apparent distress. A&Ox3. Dressing CDI. Lungs clear to auscultation bilaterally, no wheezes, ronchi or rales. Able to actively dorsiflex/plantar flex bilaterally. Sensory function grossly intact to light touch in LE bl. Dorsalis pedis 2+ bl. Calves warm, soft, compressible, nttp. Objective Labs Result Diagrams: 06/08/19 06:52 Assessment & Plan Post-op Postoperative Procedures: Procedures Operation Date: 06/07/19 13:15 Actual Procedures Side Surgeon p Total Knee Arthroplasty Left Delphine Opal Frazier MD Postoperative plan: routine post-op care Postoperative plan narrative: Pulmonary - denies shortness of breath, afebrile, lungs CTA ; no further evaluation necessary at this time, patient is using incentive spirometer Continue current pain management, per patient does not respond to pain medication other than dilaudid Continue SCDs Discharge likely tomorrow - additional PT evaluation tomorrow, possibly needs home health services Time Spent With Patient Time with patient: less than 15 minutes
[2019-06-09 16:22] VITALS: BP 151/81; PULSE 95; RESP 20; TEMP 37.1; O2SAT 94
--- NOTE | 2019-06-09 16:54 | CM.DPNOTE ---
Addendum entered by ANGELA Chatman 06/09/19 17:05: Received VM from spouse Valdez Ojeda but was unable to return call this after noon P# [phone], f/u Thursday Original Note: DCP Cont This afternoon, heard from PT Hilary that SNF was recommended and she shared w/pt this recommendation and that pt had MCR so could go to SNF Then heard from SEBASTIEN Gomez that pt's current DC was going to be cancelled (second day in a row) d/t concerns about pt's home plan- too many stairs to safely DC home. Reviewed chart and reviewed notes from the UR team; pt was observation status. Met w/pt and reviewed her observation status, she was surprised and stated that Dr Frazier told her she was inpt and so she could go to SNF, this [employer]K [employer] AGENT was not present for this conversation, explained to pt that she was observation status at this point in time and would need to pay out of pocket if interested in DC to SNF. Pt upset and asked to be connected to family to discuss. Later discussed above w/ Ortho PA Young who suggested pt would stay the night. This [employer] AGENT encouraged Young to discuss additional night w/pt and to consider/reiterate obs status. This B[employer]K [employer] AGENT suggested Home Health be arranged upon DC (?) End of today- UR SEBASTIEN French explained that upon further review this afternoon, pt was approp for inpt status but this change would take effect today. Pt would require two additional nights (after tonight) as an inpt to qualify for SNF. This [employer]K [employer] AGENT will ask that DC c4 planner scheduled Thursday06.10.19 f/u re: safe DC planning for this patient. ANGELA Chatman
--- NOTE | 2019-06-09 17:05 | PT.IPTN ---
Current Diagnoses Unilateral primary osteoarthritis, left knee (06/07/19) Surgery Performed Operation Date: 06/07/19 13:15 Actual Procedures p Total Knee Arthroplasty(Left) - Delphine Frazier MD Physical Therapy Treatment Note M2 PT-IP Current Condition Start: 06/08/19 12:03 Freq: NEEDED Status: Active Protocol: Document 06/08/19 10:18 AB (Rec: 06/08/19 12:22 AB [id number]) Physical Therapy Current Condition Current Condition Evaluation Date 06/08/19 Treatment Diagnosis s/p L TKA; difficulty in walking Onset Date 06/07/2019 Weight Bearing Status Weight Bearing Status Weight Bear as Tolerated Allowed Weight Bearing Amount (enter % LLE WBAT or #) (%) M3 PT-IP Subjective Start: 06/08/19 12:03 Freq: NEEDED Status: Active Protocol: Document 06/09/19 17:05 AB (Rec: 06/09/19 17:42 AB [email or web address]) Subjective Physical Therapy Visit Type Type Treatment Note Visit Start Time 15:05 Visit Stop Time 17:25 Total Visit Minutes 20 Number of ELECTRO MECHANICAL SOLAR TECHNICIAN Visits 0 Physical Therapy Visit Comments Patient Comments pt agreeable to do PT Therapy Pain Assessment Pain When Pain Assessed At Rest Pain Present Pain Present Pain Reported Location Left Knee Intensity 4 Scale Used 5/10 with weight bearing Pain Management Techniques Re-positioning,Timing of Activity with Medications M4 PT-IP Mobility and Gait Start: 06/08/19 12:03 Freq: NEEDED Status: Active Protocol: Document 06/09/19 17:05 AB (Rec: 06/09/19 17:42 AB [email or web address]) PT-Bed Mobility Assessment Supine to Sit Supine to Sit Standby Assistance PT-Transfer Assessment Sit to and From Stand Sit to and from Stand Contact Guard Assistance,1 Person Assistance,Use of Upper Extremities Equipment Transfer Assistive Device Gait Belt,Front Wheeled Walker Orthotic/Prosthetic Devices or Brace: No Comments Mobility Comments pt supine in bed and agreed to do PT but refused to do stair climbing training. stated that she will do it tomorrow. completed bed mobility supine to sit SBA. pt used SPC to assist LLE off the bed. completed sit to stand CGA. ambulated ~ 75 ft using FWW CGA. assessed if pt is ready for stair climbing. instructed to do L one leg stance using FWW for support and pt required 2 attempts before able to complete. was able to hold for 5 sec. attempted L one leg stance again but only using RUE on FWW for support as pt has only one rail at home and pt unable to completed and attempted x 2. pt at this time is not appropriate for stair climbing . pt sat on chair. positioned on chair. call light and table positioned. left pt with son in room. Talked to pt's son and agreed with SNF recommendation. but agreed to do caregiver training if needed. Gait Assessment Gait Gait Assistance Required: Contact Guard Assist Distance (Feet) 75 Able to Maintain Weight Bearing Status Yes During Gait Assistive Devices Assistive Device Gait Belt,Front Wheeled Walker Orthotic/Prosthetic Devices or Brace: No Gait Deviations General Gait Pattern Antalgic,Decreased Stride Length,Decreased Feet Clearance Factors Limiting Gait Function Factors Limiting Gait Function Decreased Activity Tolerance, Decreased Strength,Limited Range of Motion,Pain,Poor Balance,Poor Safety Awareness M5 PT-IP Objective Assessments Start: 06/08/19 12:03 Freq: NEEDED Status: Active Protocol: Document 06/08/19 10:18 AB (Rec: 06/08/19 12:22 AB [id number]) Orientation Orientation/Cognition Level of Alertness Alert Orientation Name,Place,Situation Safety Awareness Decreased Safety Awareness Memory Description Short Term Impaired Gross Range of Motion Lower Extremity ROM Impairments L knee flexion: ~ 80 deg Strength Lower Extremity Strength Assessment Left Impaired Hip 3+/5 Knee 3+/5 Coordination Assessment Gross Coordination Gross Coordination WNL Sensation Assessment Sensation Gross Sensation WNL Muscle Tone Muscle Tone WNL Yes M6 PT-IP Treatment Start: 06/08/19 12:03 Freq: NEEDED Status: Active Protocol: Document 06/09/19 17:05 AB (Rec: 06/09/19 17:42 AB [email or web address]) Physical Therapy Treatment Education Education Provided Safety M7 PT-IP Assessment and Plan Start: 06/08/19 12:03 Freq: NEEDED Status: Active Protocol: Document 06/09/19 17:05 AB (Rec: 06/09/19 17:42 AB [email or web address]) PT Summary Assessment and Plan Potential Rehabilitation Potential Good Summary Impairments Pain,ROM,Strength,Balance, Coordination,Sensation,Tone, Cognition,Bed Mobility, Transfers,Gait,Activity Tolerance Progress Towards Goals Slow Progress due to Pain Assessment Summary pt improving with ambulation using FWW but continues to c/o increase pain with weight bearing and is not appropriate to do stair climbing at this time. pt has 20 steps with 1 rail to enter the house and pt unable to even do a one leg stance with one sided support. pt will require SNF rehab to improve strength and functiona independence prior to d/c home. Goals Bed Mobility Goal Independent Transfer Goal Independent,Front Wheeled Walker Gait Goal Independent,Front Wheel Walker Gait Distance 150 Other Goals up/down 20 steps R rail ascending SBA Days to Meet Goals 5 Frequency of Treatment Frequency Of Treatment Twice a Day Treatment Plan Physical Therapy Treatment Plan Bed Mobility Training,Transfer Training,Gait Training, Therapeutic Exercise,Balance Retraining,Post Op Education, Discharge Planning,Hot or Cold Pack,Neuromuscular Re-ed, Coordination Retraining,Manual Therapy Other Recommendations and Next Treatment ambulation, stair climbing Focus when appropriate as well as caregiver training Recommendations To Nursing Amount of Assist Needed 1 Person Assist Discharge Recommendations PT Discharge Recommendations SNF Rehab
[2019-06-09 21:00] VITALS: BP 132/61; PULSE 84; RESP 20; TEMP 36.9; O2SAT 97
[2019-06-09 23:41] VITALS: BP 147/77; PULSE 73; RESP 16; TEMP 36.7; O2SAT 94
[2019-06-10] MEDS: IBUPROFEN 400 MG TABLET PO ×4 (00:35→12:18)
--- NOTE | 2019-06-10 00:49 | PC.NURSE ---
Patient is alert and oriented. Breath sounds remain diminished at bases with inspiratory crackles in right LL; RA sat is 94%. Reinforced need to use I.S. and CDB. HR with occasional missed/extra beat which patient states is normal for her PVC's. BP 147/77. Denies nausea. BT present and is passing flatus. Voiding on toilet; denies dysuria but does have chronic urgency and dribbling. Able to move self in bed. Walks to bathroom with walker and SBA. Placido has been making attempts to get up by herself and not remembering to use call light. Bed alarm is activated as patient is high risk for falls. Reminded she needs to call for assistance prior to getting up; verbalizes understanding. Aquacel dressing to left knee intact with spots of drainage noted and outlined. Hemovac site dressing is CDI. States pain is much improved and denies pain at rest and has 3/10 sharp pain when walking; medicated with scheduled Ibuprofen. Requesting use of SCD on right leg only as states she it is annoying and keeping her awake to have it on her left leg. CMS is intact. Hoping to discharge later today.
[2019-06-10] MEDS: HYDROMORPHONE 2 MG TABLET 4 MG PO ×3 (05:11→12:19)
[2019-06-10] MEDS: LEVOTHYROXINE 125 MCG TABLET PO (05:34)
[2019-06-10 08:00] VITALS: BP 138/66; PULSE 91; RESP 18; TEMP 36.7; O2SAT 96
[2019-06-10] MEDS: METFORMIN XR 500 MG TABLET PO (08:44)
[2019-06-10] MEDS: ASPIRIN EC 81 MG TABLET PO (08:44)
[2019-06-10 08:45] VITALS: BP 138/66
[2019-06-10] MEDS: LOSARTAN 50 MG TABLET 100 MG PO (08:45)
[2019-06-10] MEDS: FERROUS SULFATE 325 MG TABLET PO (08:45)
[2019-06-10] MEDS: DOCUSATE 100 MG CAPSULE PO (08:46)
[2019-06-10] MEDS: hydroCHLOROthiazide 12.5 MG CAPSULE PO (08:46)
[2019-06-10] MEDS: ACETAMINOPHEN 325 MG TABLET 650 MG PO (08:46)
[2019-06-10] MEDS: SODIUM CHLORIDE 0.9% FLUSH 10 ML IV (08:47)
--- NOTE | 2019-06-10 09:48 | PT.IPTN ---
Current Diagnoses Unilateral primary osteoarthritis, left knee (06/07/19) Surgery Performed Operation Date: 06/07/19 13:15 Actual Procedures p Total Knee Arthroplasty(Left) - Delphine Frazier MD Physical Therapy Treatment Note M2 PT-IP Current Condition Start: 06/08/19 12:03 Freq: NEEDED Status: Active Protocol: Document 06/08/19 10:18 AB (Rec: 06/08/19 12:22 AB [id number]) Physical Therapy Current Condition Current Condition Evaluation Date 06/08/19 Treatment Diagnosis s/p L TKA; difficulty in walking Onset Date 06/07/2019 Weight Bearing Status Weight Bearing Status Weight Bear as Tolerated Allowed Weight Bearing Amount (enter % LLE WBAT or #) (%) M3 PT-IP Subjective Start: 06/08/19 12:03 Freq: NEEDED Status: Active Protocol: Document 06/10/19 09:04 MENDY (Rec: 06/10/19 09:48 LJ [email or web address]) Subjective Physical Therapy Visit Type Type Treatment Note Visit Start Time 09:04 Visit Stop Time 09:30 Total Visit Minutes 26 Number of STRAP FOLDING MACHINE OPERATOR Visits 1 Physical Therapy Visit Comments Patient Comments pt agreeable to do PT Therapy Pain Assessment Pain When Pain Assessed At Rest Pain Present Pain Present Pain Reported M4 PT-IP Mobility and Gait Start: 06/08/19 12:03 Freq: NEEDED Status: Active Protocol: Document 06/10/19 09:04 LJ (Rec: 06/10/19 09:48 LJ [email or web address]) PT-Transfer Assessment Sit to and From Stand Sit to and from Stand Standby Assistance,1 Person Assistance,Use of Upper Extremities Equipment Transfer Assistive Device Gait Belt,Front Wheeled Walker Orthotic/Prosthetic Devices or Brace: No Transfers Transfer Destination Bed Transfer Technique ambulated using FWW Transfer Ability Level of Assist Contact Guard Assistance,Use of Upper Extremities Comments Mobility Comments Pt was in the bathroom. Ambulated independently with FWW from bed to toilet to sink with SBA. Transfered SBA to to go to stairs for trial. Gait Assessment Gait Gait Assistance Required: Standby Assistance Distance (Feet) 75 Able to Maintain Weight Bearing Status Yes During Gait Assistive Devices Assistive Device Gait Belt,Front Wheeled Walker Orthotic/Prosthetic Devices or Brace: No Gait Deviations General Gait Pattern Antalgic,Decreased Stride Length,Decreased Feet Clearance Factors Limiting Gait Function Factors Limiting Gait Function Decreased Activity Tolerance, Decreased Strength,Limited Range of Motion,Pain,Poor Balance,Poor Safety Awareness Comments Gait Comments Pt WC to stairs. Ambulated several feet with SPC from WC to stairs. SBA with FWW from stairs to end of nursing station with cues for posture and keeping FWW closer to her body. Stair Climbing Assessment Evaluation Level of Assist On Stairs Standby Assistance,1 Person Assistance Devices Stair Climbing Assistive Devices Straight Cane,Left Railing Technique/Endurance Stair Climbing Direction Ascend and Descend Stair Climbing Technique Step to Step Number of Steps Climbed 3 Stair Climbing Set # Repetitions (reps) 3 Comments Stair Climbing Comments Pt used SPC and rail for ascend and descend stairs x3. Pt moved slowly and carefully. Cues for placing full foot on step and standing taller upon descent. M5 PT-IP Objective Assessments Start: 06/08/19 12:03 Freq: NEEDED Status: Active Protocol: Document 06/08/19 10:18 AB (Rec: 06/08/19 12:22 AB [id number]) Orientation Orientation/Cognition Level of Alertness Alert Orientation Name,Place,Situation Safety Awareness Decreased Safety Awareness Memory Description Short Term Impaired Gross Range of Motion Lower Extremity ROM Impairments L knee flexion: ~ 80 deg Strength Lower Extremity Strength Assessment Left Impaired Hip 3+/5 Knee 3+/5 Coordination Assessment Gross Coordination Gross Coordination WNL Sensation Assessment Sensation Gross Sensation WNL Muscle Tone Muscle Tone WNL Yes M6 PT-IP Treatment Start: 06/08/19 12:03 Freq: NEEDED Status: Active Protocol: Document 06/10/19 09:04 MENDY (Rec: 06/10/19 09:48 LJ [email or web address]) Physical Therapy Treatment Exercises Exercises Gluteal Sets,Quad Sets Education Education Provided Weight Bearing Status,Safety M7 PT-IP Assessment and Plan Start: 06/08/19 12:03 Freq: NEEDED Status: Active Protocol: Document 06/10/19 09:04 MENDY (Rec: 06/10/19 09:48 LJ [email or web address]) PT Summary Assessment and Plan Potential Rehabilitation Potential Good Summary Impairments Pain,ROM,Strength,Balance, Coordination,Sensation,Tone, Cognition,Bed Mobility, Transfers,Gait,Activity Tolerance Progress Towards Goals Slow Progress due to Pain Assessment Summary Pt trialed stairs successfully x3 using SPC and rail. Slow ascent and descent with cues for correcting forward lean on descent and placing entire foot on step. Will require caregiver training for stair and gait assistance. Goals Bed Mobility Goal Independent Transfer Goal Independent,Front Wheeled Walker Gait Goal Independent,Front Wheel Walker Gait Distance 150 Other Goals up/down 20 steps R rail ascending SBA Days to Meet Goals 5 Frequency of Treatment Frequency Of Treatment Twice a Day Treatment Plan Physical Therapy Treatment Plan Bed Mobility Training,Transfer Training,Gait Training, Therapeutic Exercise,Balance Retraining,Post Op Education, Discharge Planning,Hot or Cold Pack,Neuromuscular Re-ed, Coordination Retraining,Manual Therapy Other Recommendations and Next Treatment caregiver training for stairs Focus and ambulation Recommendations To Nursing Amount of Assist Needed 1 Person Assist Discharge Recommendations PT Discharge Recommendations Home with Assistance
--- NOTE | 2019-06-10 12:10 | PM.DS.1 ---
History of Present Illness History of Present Illness Date Patient Seen: 06/10/19 Time Patient Seen: 07:10 Chief complaint: Left Total Knee Arthoplasty Narrative: Indications: The patient has had progressively worsening left knee pain with radiographic changes consistent with arthritis. Non-operative management has failed and the patient has requested total knee replacement. The risks, benefits and alternatives to surgery were discussed with the patient prior to proceeding. Risks discussed included, but were not limited to, failure to relieve pain, stiffness, infection, nerve damage, deep venous thrombosis, pulmonary embolism, stroke, coma, heart attack, permanent paralysis and , as well as the potential need for eventual revision of the prosthetic. Discharge Providers Provider Date of admission: 06/07/19 10:54 Discharge Date: 06/10/19 Primary care physician: Micky Bautista MD Consults: 06/07/19 06:00 Consult to Anesthesiology Routine Comment: Consulting Provider: Anesthesiologist Reason for consultation: Regional block for post operative pain control 06/07/19 18:35 Consult to Discharge Planning Routine Comment: Consult to Physical Therapy Evaluate & Treat Comment: Physician Instructions: postop TKA protocol Consult to Respiratory Therapy Evaluate & Treat Comment: Physician Instructions: Evaluate and treat Discharge provider: Luana Frederick PA-C Summary Hospital Course Discharge Diagnosis: s/p left total knee arthroplasty Hospital Course: Mary was admitted for a left total knee arthroplasty with Dr. Frazier and she consented to procedure. Initially patient had pain control issues, and was slow to mobilize because of this. Postop day 3 she was ready discharge home with her sons and . She is eating and voiding without difficulty or assistance. She worked with physical therapy throughout her stay. Her pain was controlled with Dilaudid. She had SCDs and ASA for DVT prophylaxis. Status at Discharge Functional status at discharge: uses cane/walker Exam Vital Signs (past 8 hours): - 06/10/19 08:00 06/10/19 08:45 Temperature 98.0 F Pulse Rate 91 H Respiratory Rate 18 Blood Pressure 138/66 138/66 Pulse Oximetry 96 Oxygen Delivery Method Room Air Oxygen Flow Rate 0 Narrative Exam Narrative: Patient sitting up in bedside chair in NAD. She is alert and oriented X3. Dressing on knee is CDI. Calves are soft, compressible, and nontender bilaterally. She is able to actively dorsiflex and plantar flex. Sensation is intact light touch throughout bilateral lower extremities. Pain is adequately controlled with Dilaudid, and Tylenol. She takes ASA 1 mg b.i.d. DVT prophylaxis. Objective Labs Result Diagrams: 06/08/19 06:52 Discharge Plan Discharge Plan Patient Disposition: Home Discharge orders & Medications Prescriptions: New hydromorphone [Dilaudid] 2 mg tablet 2 mg PO Q4-6H PRN (Reason: pain) Qty: 40 RF: 0 aspirin 81 mg tablet,delayed release (DR/EC) 81 mg PO BID Qty: 60 RF: 0 Continued levothyroxine [Synthroid] 125 MCG tablet 0.125 mg PO QDAY Qty: 0 RF: 0 metformin [Glucophage XR] 500 MG tablet extended release 24 hr 500 mg PO QDAY Qty: 0 RF: 0 losartan-hydrochlorothiazide 100 MG/12.5 MG tablet 1 tab PO QDAY Qty: 0 RF: 0 acetaminophen 325 MG tablet 500 mg PO Q4HP PRN (Reason: Pain) RF: 0 ferrous sulfate 325 mg (65 mg iron) Tablet 325 mg PO DAILY RF: 0 ibuprofen 200 mg Tablet 400 - 600 mg PO QAM RF: 0 loratadine 10 mg Tablet 10 mg PO DAILY PRN (Reason: Allergy Symptoms) RF: 0 Follow up/Referrals: Micky Bautista MD [Primary Care Provider] - Delphine Frazier MD [Physician] - As previously scheduled Diet/Activity/Treatments Diet: Regular Activity: weightbearing as tolerated. follow joiner path protocol for total knee arthroplasty Cold/Heat Therapy: continue cold therapy as needed Skin/Wound/Dressing Care Report to your healthcare provider any signs of infection, such as:: chills, fever, increased pain, unusual drainage and unusual redness Dressing: keep dressing dry. can shower, do not soak (e.g. bath) Visit Report/Discharge Packet Instructions: DI for Knee Replacement, DI for Constipation, How to Prevent Falls, DI for Prescription Opioid Use Stand Alone Forms: Surgery Discharge Visit Report Forms: Patient Portal/API, Stroke Signs & Symptoms Discharge Data Primary Care Provider: Micky Bautista Discharges patient from system. Discharge Date/Time: 06/10/19 14:39
--- NOTE | 2019-06-10 12:13 | CM.DPC ---
DCP continued: EMR reviewed: CM/Rn met with patient at the bedside. Patient stated she has been struggling with stairs and has 20 steps to get into her home. Patient worked with PT and was able to do climb 9 stairs and PT plans to meet patient again this afternoon and do stairs again and do caregiver training with Patients son. CM/RN got Face to face done and faxed along with D/C summary and PT notes sent to [facility]. Plan: patient to D/C home with her son and HH in place to help patient at home during recovery. Evy Frazier RN
--- NOTE | 2019-06-10 13:57 | PC.NURSE ---
Pt given pain meds prior to discharge-plans to work with P.T. on stairs with P.T. and her son for stair training. IV removed. Went over d/c instructions with Pt-discussed d/c meds, time of last dose, reminded Pt to drink plenty of fluids to prevent constipation and no driving while on narcotics. Reviewed stroke education and s/s of stroke as well as s/s of infection and when to call MD. Pt has a follow up appointment already scheduled. Pt denies further questions and will be ready to be taken out via w/c by [employer] to POV with Son and all belongings as soon as she finishes with P.T.
--- NOTE | 2019-06-10 14:17 | PT.IPTN ---
Current Diagnoses Unilateral primary osteoarthritis, left knee (06/07/19) Surgery Performed Operation Date: 06/07/19 13:15 Actual Procedures p Total Knee Arthroplasty(Left) - Delphine Frazier MD Physical Therapy Treatment Note M2 PT-IP Current Condition Start: 06/08/19 12:03 Freq: NEEDED Status: Active Protocol: Document 06/08/19 10:18 AB (Rec: 06/08/19 12:22 AB [id number]) Physical Therapy Current Condition Current Condition Evaluation Date 06/08/19 Treatment Diagnosis s/p L TKA; difficulty in walking Onset Date 06/07/2019 Weight Bearing Status Weight Bearing Status Weight Bear as Tolerated Allowed Weight Bearing Amount (enter % LLE WBAT or #) (%) M3 PT-IP Subjective Start: 06/08/19 12:03 Freq: NEEDED Status: Active Protocol: Document 06/10/19 13:35 LJ (Rec: 06/10/19 14:17 LJ [email or web address]) Subjective Physical Therapy Visit Type Type Treatment Note Visit Start Time 13:35 Visit Stop Time 14:04 Total Visit Minutes 29 Physical Therapy Visit Comments Patient Comments Ready to do caregiver training with son M4 PT-IP Mobility and Gait Start: 06/08/19 12:03 Freq: NEEDED Status: Active Protocol: Document 06/10/19 13:35 LJ (Rec: 06/10/19 14:17 LJ [email or web address]) PT-Transfer Assessment Sit to and From Stand Sit to and from Stand Standby Assistance,1 Person Assistance,Use of Upper Extremities Equipment Transfer Assistive Device Gait Belt,Front Wheeled Walker Transfers Transfer Destination Wheelchair,Car Transfer Technique ambulated using FWW Transfer Ability Level of Assist Standby Assistance,Use of Upper Extremities Comments Mobility Comments Pt in room with son waiting to trial stairs with son assisting. Ambulated with son SBA in hallway 25' then sat in WC to transport to stairs. Gait Assessment Gait Gait Assistance Required: Standby Assistance Distance (Feet) 50 Assistive Devices Assistive Device Gait Belt,Front Wheeled Walker Orthotic/Prosthetic Devices or Brace: No Gait Deviations General Gait Pattern Antalgic,Decreased Stride Length,Decreased Feet Clearance Factors Limiting Gait Function Factors Limiting Gait Function Decreased Activity Tolerance, Decreased Strength,Limited Range of Motion,Pain,Poor Balance,Poor Safety Awareness Comments Gait Comments Pt ambulated with son assist in hallway 25' x2 SBA. Son positioned himself properly and cued mom to keep FWW colse and stand erect within frame of FWW. Stair Climbing Assessment Evaluation Level of Assist On Stairs Standby Assistance,1 Person Assistance Devices Stair Climbing Assistive Devices Straight Cane,Left Railing Technique/Endurance Stair Climbing Direction Ascend and Descend Stair Climbing Technique Step to Step Number of Steps Climbed 3 Stair Climbing Set # Repetitions (reps) 2 Comments Stair Climbing Comments Son assisted and cued mom during stair trial. Son positioned himself properly and gave accurate and appropriate cueing. M5 PT-IP Objective Assessments Start: 06/08/19 12:03 Freq: NEEDED Status: Active Protocol: Document 06/08/19 10:18 AB (Rec: 06/08/19 12:22 AB [id number]) Orientation Orientation/Cognition Level of Alertness Alert Orientation Name,Place,Situation Safety Awareness Decreased Safety Awareness Memory Description Short Term Impaired Gross Range of Motion Lower Extremity ROM Impairments L knee flexion: ~ 80 deg Strength Lower Extremity Strength Assessment Left Impaired Hip 3+/5 Knee 3+/5 Coordination Assessment Gross Coordination Gross Coordination WNL Sensation Assessment Sensation Gross Sensation WNL Muscle Tone Muscle Tone WNL Yes M6 PT-IP Treatment Start: 06/08/19 12:03 Freq: NEEDED Status: Active Protocol: Document 06/10/19 13:35 MENDY (Rec: 06/10/19 14:17 [email or web address]) Physical Therapy Treatment Education Education Provided Weight Bearing Status,Safety Other Treatments Other Treatment Performed Discussed arranging house to be free of obstacles and throw rugs. Addressed safety issues with pets also. Both agreed and were discussing amongst themselves the appropriate changes to make. M7 PT-IP Assessment and Plan Start: 06/08/19 12:03 Freq: NEEDED Status: Active Protocol: Document 06/10/19 13:35 MENDY (Rec: 06/10/19 14:17 LJ [email or web address]) PT Summary Assessment and Plan Potential Rehabilitation Potential Good Summary Impairments Pain,ROM,Strength,Balance, Coordination,Sensation,Tone, Cognition,Bed Mobility, Transfers,Gait,Activity Tolerance Progress Towards Goals Slow Progress due to Pain Assessment Summary Son assisted pt with gait belt donning and doffing and walked with her, WC following, in hallway 25' x2. Appropriately assisted and cued mother on stairs and with FWW management. He demonstrated safe and secure handling and spoke of arrangements to make in the home to make clear pathways and remove tripping hazzards and rugs. Goals Bed Mobility Goal Independent Transfer Goal Independent,Front Wheeled Walker Gait Goal Independent,Front Wheel Walker Gait Distance 150 Other Goals up/down 20 steps R rail ascending SBA Days to Meet Goals 5 Frequency of Treatment Frequency Of Treatment Twice a Day Treatment Plan Physical Therapy Treatment Plan Bed Mobility Training,Transfer Training,Gait Training, Therapeutic Exercise,Balance Retraining,Post Op Education, Discharge Planning,Hot or Cold Pack,Neuromuscular Re-ed, Coordination Retraining,Manual Therapy Recommendations To Nursing Amount of Assist Needed 1 Person Assist Discharge Recommendations PT Discharge Recommendations Home with Assistance
== END 2019-06-10 14:39 | disposition home health service (06) | DRG 470 ==
LOC: AC 06-10 10:10 → OR 06-10 14:54 → AC 06-10 14:56
PROVIDERS: Admitting Provider Orthopaedic Surgery; PCP Family Medicine; Visit Provider Orthopaedic Surgery
PROC: 0SRD0JZ Replacement of Left Knee Joint with Synthetic Substitute, Open Approach (ICD-10-PCS; CPT 27447; principal; 2019-06-07 13:15)
DX: M17.12 Unilateral primary osteoarthritis, left knee (principal); Z96.651 Presence of right artificial knee joint; E78.5 Hyperlipidemia, unspecified; E11.9 Type 2 diabetes mellitus without complications; G89.18 Other acute postprocedural pain; I25.10 Atherosclerotic heart disease of native coronary artery without angina pectoris; Z79.84 Long term (current) use of oral hypoglycemic drugs; Z91.81 History of falling; Z87.891 Personal history of nicotine dependence
CPT/HCPCS: 36415; 73560; 85014; 85018; 97110; 97116; 97162; 97530; 97535; C1776; G0378; C9290; J0690; J1170; J2250; J2274; J2405; J2704; J3010

== ENCOUNTER → 2019-08-03 11:14 | Outpatient (ROUT) | payer MEDICARE, OTHER, SELFPAY ==
[2019-06-07 18:44] VITALS: BMI 28.8
== END ==
PROVIDERS: PCP Family Medicine; Visit Provider Orthopaedic Surgery
DX: Z96.652 Presence of left artificial knee joint (principal)
CPT/HCPCS: 87070; 87075; 87077; 87147; 87186; 87205

== ENCOUNTER → 2019-12-24 13:58 | Outpatient (CLI) | payer MEDICARE, OTHER, SELFPAY ==
[2019-12-16 09:33] VITALS: BMI 28.8
[2019-12-25 16:57] LABS: COVID19 Sendout Not Detected (Not Detect)
== END ==
PROVIDERS: PCP Family Medicine; Visit Provider Physician Assistant
DX: Z11.59 Encounter for screening for other viral diseases (principal)
CPT/HCPCS: 87635

== ENCOUNTER 2019-12-27 06:43 | Day surgery (SDC) | payer MEDICARE, OTHER, SELFPAY ==
[2019-12-16 09:33] VITALS: BMI 28.8
[2019-12-27] MEDS: PROPARACAINE 0.5% OPHTH SOL 2 DROPS EYE-OP (07:15)
[2019-12-27] MEDS: CATARACT EYE COMPOUND (10 DROPS/SYRINGE) 3 DROPS EYE-OP (07:15)
[2019-12-27 07:19] VITALS: BP 128/71; PULSE 70; RESP 16; TEMP 36.2; O2SAT 97; BMI 65.6
--- NOTE | 2019-12-27 08:06 | PM.PREOP ---
Pre-operative Note Interval Note History & Physical reviewed/Exam performed by Physician: Yes Changes to H&P: No
--- NOTE | 2019-12-27 08:06 | PM.OP.1 ---
Operative Date/Time/Diagnoses Pre-op diagnosis: Nuclear cataract right eye Procedure & Clinicians Procedure: Cataract Surgery Same procedure as scheduled: Yes Surgeon: Dagoberto Muse Anesthesia Type: MAC +/- and Sedation Operative Notes Procedure in detail: Patient brought to the operating suite. Tetracaine drops placed in the right eye. Patient was prepped and draped in sterile manner. Wire lid speculum was placed in the eye. Betadine drops were placed on the eye. This was irrigated. Lidocaine jelly was placed on the eye. A paracentesis port was created with a side-port blade. 0.1 mL 1% preservative free lidocaine was injected into the anterior chamber. The anterior chamber was deepened with viscoelastic. 2.6 mm keratome was used to create a temporal clear corneal incision. Cystotome and Utrata forceps were used to create continuous tear capsulorrhexis. Balanced salt solution was used to hydro dissect the nucleus. The phacoemulsification handpiece was inserted and the nucleus was removed using the stop and chop technique. The irrigation aspiration handpiece was inserted and the remaining cortex was removed. Anterior chamber was deepened with viscoelastic. An Tesfaye ZCB00 intraocular lens with a power of 19.0 was injected into the capsular bag. Irrigation aspiration handpiece was inserted and the remaining viscoelastic was removed. Incision was hydrated with balanced salt solution and found to be leak free with pressure with Weck-Amrita sponges. 0.1 mL Vigamox injected anterior chamber. 0.3 mL Kenalog 10 mg was injected subconjunctivally. Lid speculum was removed. The patient left the operating room in excellent condition. Complications: none Post-operative Condition: stable Disposition: same day surgery
[2019-12-27] MEDS: PHENYLEPHRINE/LIDOCAINE VIAL (OR) 0.2 ML EYE-OP (08:23)
[2019-12-27] MEDS: TRIAMCINOLONE 50 MG/5 ML VIAL INJ (08:24)
[2019-12-27] MEDS: MOXIFLOXACIN INJ 5 MG/ML VIAL EYE-OP (08:24)
[2019-12-27] MEDS: LIDOCAINE JELLY 2% 5 ML 1 APPLIC TOP (08:25)
[2019-12-27] MEDS: TETRACAINE 0.5% OPHTH DROPS 4 ML 2 DROPS EYE-OP (08:25)
[2019-12-27] MEDS: BALANCED SALT IRRIG SOLN NO.2 500 ML, EPINEPHrine 1 MG IRR (08:25)
[2019-12-27] MEDS: CHONDROIDTIN/SOD HYALURONATE 1.05 ML SYRINGE INTRAOCULA (08:26)
[2019-12-27 08:38] VITALS: BP 113/67; PULSE 61; RESP 14; TEMP 35.9; O2SAT 97
== END 2019-12-27 08:56 | disposition home or self-care (01) ==
PROVIDERS: PCP Family Medicine; Referring Provider Ophthalmology; Visit Provider Ophthalmology
PROC: (CPT 66984; principal; 2019-12-27 08:15)
DX: H25.11 Age-related nuclear cataract, right eye (principal); E11.9 Type 2 diabetes mellitus without complications; I10 Essential (primary) hypertension; N19 Unspecified kidney failure; Z79.84 Long term (current) use of oral hypoglycemic drugs
CPT/HCPCS: 66984; J0171; J2250; J3301

== ENCOUNTER → 2020-01-07 11:38 | Outpatient (CLI) | payer MEDICARE, OTHER, SELFPAY ==
[2019-12-16 09:33] VITALS: BMI 28.8
[2020-01-09 01:24] LABS: COVID19 Sendout Not Detected (Not Detect)
== END ==
PROVIDERS: PCP Family Medicine; Visit Provider Nurse Practitioner
DX: Z11.59 Encounter for screening for other viral diseases (principal)
CPT/HCPCS: 87635

== ENCOUNTER 2020-01-10 07:13 | Day surgery (SDC) | payer MEDICARE, OTHER, SELFPAY ==
[2019-12-16 09:33] VITALS: BMI 28.8
[2020-01-10] MEDS: PROPARACAINE 0.5% OPHTH SOL 2 DROPS EYE-OP (08:10)
[2020-01-10 08:17] VITALS: BP 143/74; PULSE 60; RESP 16; TEMP 36.1; O2SAT 99; BMI 29.7
[2020-01-10] MEDS: CATARACT EYE COMPOUND (10 DROPS/SYRINGE) 3 DROPS EYE-OP (08:31)
--- NOTE | 2020-01-10 09:14 | P.OP_ITS ---
Operative Date/Time/Diagnoses Pre-op diagnosis: Nuclear Cataract Left eye Post-op diagnosis: same Procedure & Clinicians Same procedure as scheduled: Yes Surgeon: Dagoberto Muse Anesthesia Type: MAC +/- and Sedation Operative Notes Procedure in detail: Patient brought to the operating suite. Tetracaine drops placed in the left eye. Patient was prepped and draped in sterile manner. Wire lid speculum was placed in the eye. Betadine drops were placed on the eye. This was irrigated. Lidocaine jelly was placed on the eye. A paracentesis port was created with a side-port blade. 0.1 mL 1% preservative free lidocaine was injected into the anterior chamber. The anterior chamber was deepened with viscoelastic. 2.6 mm keratome was used to create a temporal clear corneal incision. Cystotome and Utrata forceps were used to create continuous tear capsulorrhexis. Balanced salt solution was used to hydro dissect the nucleus. The phacoemulsification handpiece was inserted and the nucleus was removed using the stop and chop technique. The irrigation aspiration handpiece was inserted and the remaining cortex was removed. Anterior chamber was deepened with viscoe lastic. An Tesfaye ZCB00 intraocular lens with a power of 18.0 was injected into the capsular bag. Irrigation aspiration handpiece was inserted and the remaining viscoelastic was removed. Incision was hydrated with balanced salt solution and found to be leak free with pressure with Weck-Amrita sponges. 0.1 mL Vigamox injected anterior chamber. 0.3 mL Kenalog 10 mg was injected subconjunctivally. Lid speculum was removed. The patient left the operating room in excellent condition. Complications: none Post-operative Condition: stable Disposition: same day surgery
--- NOTE | 2020-01-10 09:14 | PM.PREOP ---
Pre-operative Note Interval Note History & Physical reviewed/Exam performed by Physician: Yes Changes to H&P: No
[2020-01-10] MEDS: PHENYLEPHRINE/LIDOCAINE VIAL (OR) 0.2 ML EYE-OP (09:35)
[2020-01-10] MEDS: TRIAMCINOLONE 50 MG/5 ML VIAL INJ (09:35)
[2020-01-10] MEDS: LIDOCAINE JELLY 2% 5 ML 1 APPLIC TOP (09:35)
[2020-01-10] MEDS: CHONDROIDTIN/SOD HYALURONATE 1.05 ML SYRINGE INTRAOCULA (09:35)
[2020-01-10] MEDS: MOXIFLOXACIN INJ 5 MG/ML VIAL EYE-OP (09:35)
[2020-01-10] MEDS: BALANCED SALT IRRIG SOLN NO.2 500 ML, EPINEPHrine 1 MG IRR (09:36)
[2020-01-10] MEDS: TETRACAINE 0.5% OPHTH DROPS 4 ML 2 DROPS EYE-OP (09:36)
[2020-01-10 09:50] VITALS: BP 131/73; PULSE 62; RESP 20; TEMP 36.4; O2SAT 95
== END 2020-01-10 10:04 | disposition home or self-care (01) ==
PROVIDERS: PCP Family Medicine; Referring Provider Ophthalmology; Visit Provider Ophthalmology
PROC: (CPT 66984; principal; 2020-01-10 09:15)
DX: H25.12 Age-related nuclear cataract, left eye (principal); E11.9 Type 2 diabetes mellitus without complications; I10 Essential (primary) hypertension; N19 Unspecified kidney failure
CPT/HCPCS: 66984; J0171; J2250; J3010; J3301

== ENCOUNTER 2023-10-01 13:00 | Outpatient (RCR) | payer MEDICARE, OTHER, SELFPAY ==
[2019-12-16 09:33] VITALS: BMI 28.8
--- NOTE | 2023-07-02 16:43 | PT.OIE ---
Current Diagnoses Mixed incontinence (07/02/23) Pelvic muscle wasting (07/02/23) Weakness (07/02/23) Past Medical History (Last Updated 05/25/19 @ 14:46 by Yanira Krueger RN) Allergic rhinitis Anemia Arthritis Asthma Bilateral cataracts Former smoker Influenza (~07/2018) Irregular heart beats Lung nodule seen on imaging study (~12/2018) Old inferior wall myocardial infarction Pneumonia (~08/2018) UTI (urinary tract infection) Past Surgical History (Last Updated 05/25/19 @ 14:46 by Yanira Krueger RN) History of arthroplasty of right knee (02/24/17) Visit Care Team Role Provider Type Micky Bautista MD Primary Care Provider Non-Staff Specialty: Family Practice Address: [address] [place] [address], [place], [address] Email: Jos Fox MD Attending Provider Non-Staff Family Provider Referring Provider Specialty: Internal Medicine Address: [address] [place] [address] [address], [place], [address] Email: Physical Therapy Initial Evaluation PT-OP-A Visit Information Start: 06/25/23 08:07 Freq: Status: Active Protocol: Document 07/02/23 13:49 [facility] (Rec: 07/02/23 14:39 [facility] [id number]) Out-Patient Physical Therapy Visit Information Visit Information Visit Type Initial Evaluation Visit Start Time 13:00 Visit Stop Time 13:45 Visit Number 1 Evaluation Information Evaluation Date 07/02/23 PT-OP-B Current Condition Start: 06/25/23 08:07 Freq: Status: Active Protocol: Document 07/02/23 13:49 [facility] (Rec: 07/02/23 14:39 [facility] [id number]) Current Condition History of Current Condition Onset Date 2 years ago History of Current Condition two years ago symptoms started having symptoms or urinary incontinence, she notes if she goes to the bathroom every hour her symptoms are better. If she lifts something heavy there is no control. THings like lifting bird or dog feed or fertilizer cause leakage, grocerys. Treatment Goals Patient/Caregiver Goals pt's goals are to reduce urinary leakage and to be able to lift her bird seed and dog food without leakage PT-OP-C Subjective Start: 06/25/23 08:07 Freq: Status: Active Protocol: Document 07/02/23 13:45 [facility] (Rec: 07/07/23 16:40 [facility] [id number]) Patient Questionnaires Pelvic Pain and Urgency/Frequency Patient Symptom Scale Pelvic Pain Score 6 PT-OP-F Manual Assessment Start: 06/25/23 08:07 Freq: Status: Active Protocol: Document 07/02/23 13:45 [facility] (Rec: 07/07/23 16:40 [facility] [id number]) Manual Assessments Soft Tissue Assessment Soft Tissue Mobility Assessment There is tightness and guarding of the abdominal fascia and suprapubic fascia, Mary reports she has prunes daily for bowel movements PT-OP-I Pelvic Floor Start: 06/25/23 08:07 Freq: Status: Active Protocol: Document 07/02/23 13:45 [facility] (Rec: 07/07/23 16:40 [facility] [id number]) Pelvic Floor Assessment Urine Other Urinary Symptoms urinary leakage that pt describes as constant throughout the day but does worsen with lifting. Leakage Size Large Leakage Cause Lifting Leaks Per Day 4 Voiding Frequency 8 Nocturia 2 Pads Used In 24 Hours 5 Urine Pad Type Maxi Pad Contraction Ability Voluntary Contraction Weak Voluntary Relaxation Weak Muscle Endurance (Seconds) 5 Comments Pelvic Floor Comments external pelvic floor assessment done today. Mary is able to contract her pelvic floor however she has difficulty sustaining a pelvic floor contraction greater than 5 seconds in supine Mary also emptys her bladder frequently prior to experiencing the urge to void. The volume of urine passed is usually very small to small . PT-OP-M Strength Start: 06/25/23 08:07 Freq: Status: Active Protocol: Document 07/02/23 13:45 [facility] (Rec: 07/07/23 16:41 [facility] [id number]) Trunk Strength Trunk Manual Muscle Testing Flexion 2+ Poor+ Hip Strength Hip Manual Muscle Testing Right Flexion (L2) 3 Fair Abduction 3 Fair Left Flexion (L2) 3 Fair Abduction 3 Fair PT-OP-Q Treatments Start: 06/25/23 08:07 Freq: Status: Active Protocol: Document 07/02/23 13:49 [facility] (Rec: 07/02/23 14:39 [facility] [id number]) Therapeutic Exercises Supine Exercises pelvic floor quick contractions Reps/Minutes x 10 reps holding 2 seconds and relaxing 2 seconds supine ball squeeze with pelvic floor contraction Reps/Minutes x 10 reps holding 5 seconds and resting 10 seconds Sitting Exercises seated pelvic floor contractions Reps/Minutes 10 reps 2 sec on 2 sec off Comments pt to do 10 contractions prior to standing up out of her chair Self-Care/Home Management Treatment Education Other Education pt was educated on a squatty potty to help with fully voiding PT-OP-T Assessment and Plan Start: 06/25/23 08:07 Freq: Status: Active Protocol: Document 07/02/23 13:45 [facility] (Rec: 07/07/23 16:40 [facility] [id number]) Physical Therapy Assessment Rehab Potential Rehabilitation Potential Good Evaluation Complexity Number of Personal Factors/Comorbidities 1-2 Number of Body Systems Impaired 1-2 Clinical Presentation at Evaluation Stable Impairments Impairments Activity Tolerance,Soft Tissue Mobility,Strength,Tone Other Impairments urinary stress incontinence as well as constant leakage throughout the day Goals 3 Impairment mary lacks a home exercise program for pelvic floor and core strengthening [facility] Goal (LTG) Mary is independent with a home program for pelvic floor and core strength training LTG Duration 12 weeks 2 Impairment urinary leakage that is constant throughout the day but made worse with lifting, using 4-5 poise pads per day Short Term Goal (STG) Mary is educated on tightening her pelvic floor prior to lifting and prior to a cough or sneeze STG Duration 5 weeks [facility] Goal (LTG) Mary has been able to reduce her complaints of urinary leakage and she is down to 1-2 poise pads per day LTG Duration 12 weeks 1 Impairment Decreased pelvic floor endurance Short Term Goal (STG) Mary is able to sustain a pelvic floor contraction for 10 seconds in supine STG Duration 5 weeks 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 She reports leakage is occuring constantly throughout the day but she can tell when she lifts she loses urine. She is leaking approx 1-4 times per day wetting through underware. She is weaing Poise pads and is going through 4-5 per day. She is currently drinking approx 4 cups of coffee per day and I did review bladder irritants with Mary. She is waking 2 times per night to void. Other past medical history includes history of Knee replacements 3 and 5 years ago. Mary has been going to a exercise class at the [facility] and notes this has helped her mobility as now she able to transfer from sit-stand without use of her hands. She does present with weakness throughout her hips and core. Mary will benefit from pelvic floor and lower abdominal muscle training as well as strengthening throught her hips as well. She is a good candidate for PT Physical Therapy Plan Frequency and Duration Frequency of Treatment 1x/Week Duration of treatment (weeks) 12 Plan of Care Start Date 07/02/23 Plan of Care End Date 09/24/23 Therapeutic Interventions Therapeutic Interventions Home Exercise Program, Neuromuscular Re-education, Patient/Caregiver Education, Self-Care/Home Management, Therapeutic Exercises Modalities Biofeedback Next Visit Focus/Plan Next Note Type Treatment Note Next Visit Plan review exercises given at today's appointment and progress pelvic floor and core stabilization exercises
--- NOTE | 2023-07-02 16:44 | PT.OPPOC ---
Physical, Occupational & Speech Therapy At [facility] Current Diagnoses Mixed incontinence (07/02/23) Pelvic muscle wasting (07/02/23) Weakness (07/02/23) Visit Care Team Role Provider Type Micky Bautista MD Primary Care Provider Non-Staff Specialty: Family Practice Address: [address] [place] [address], [place], [address] Email: Jos Fox MD Attending Provider Non-Staff Family Provider Referring Provider Specialty: Internal Medicine Address: [address] [place] [address] [address], [place], [address] Email: Plan Of Care PT-OP-T Assessment and Plan Start: 06/25/23 08:07 Freq: Status: Active Protocol: Document 07/02/23 13:45 [facility] (Rec: 07/07/23 16:40 [facility] [id number]) Physical Therapy Assessment Rehab Potential Rehabilitation Potential Good Evaluation Complexity Number of Personal Factors/Comorbidities 1-2 Number of Body Systems Impaired 1-2 Clinical Presentation at Evaluation Stable Impairments Impairments Activity Tolerance,Soft Tissue Mobility,Strength,Tone Other Impairments urinary stress incontinence as well as constant leakage throughout the day Goals 3 Impairment mic lacks a home exercise program for pelvic floor and core strengthening 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) Mic is independent with a home program for pelvic floor and core strength training LTG Duration 12 weeks 2 Impairment urinary leakage that is constant throughout the day but made worse with lifting, using 4-5 poise pads per day Short Term Goal (STG) Mic is educated on tightening her pelvic floor prior to lifting and prior to a cough or sneeze STG Duration 5 weeks Senior Care Goal (LTG) Mic has been able to reduce her complaints of urinary leakage and she is down to 1-2 poise pads per day LTG Duration 12 weeks 1 Impairment Decreased pelvic floor endurance Short Term Goal (STG) Mic is able to sustain a pelvic floor contraction for 10 seconds in supine STG Duration 5 weeks Senior Care Goal (LTG) Mic is able to perform a pelvic floor contraction in standing prior to lifting her bird seed or dog food LTG Duration 12 weeks Assessment Summary Assessment Mic is a 82 year old female with worsening complaints of urinary incontinence in the past 2-3 years. She reports leakage is occurring constantly throughout the day but she can tell when she lifts she loses urine. She is leaking approx 1-4 times per day wetting through underware. She is wearing Poise pads and is going through 4-5 per day. She is currently drinking approx 4 cups of coffee per day and I did review bladder irritants with Mic. She is waking 2 times per night to void. Other past medical history includes history of Knee replacements 3 and 5 years ago. iMc has been going to a exercise class at the [facility] and notes this has helped her mobility as now she able to transfer from sit-stand without use of her hands. She does present with weakness throughout her hips and core. Mic will benefit from pelvic floor and lower abdominal muscle training as well as strengthening throughout her hips as well. She is a good candidate for PT Physical Therapy Plan Frequency and Duration Frequency of Treatment 1x/Week Duration of treatment (weeks) 12 Plan of Care Start Date 07/02/23 Plan of Care End Date 09/24/23 Therapeutic Interventions Therapeutic Interventions Home Exercise Program, Neuromuscular Re-education, Patient/Caregiver Education, Self-Care/Home Management, Therapeutic Exercises Modalities Biofeedback Next Visit Focus/Plan Next Note Type Treatment Note Next Visit Plan review exercises given at today's appointment and progress pelvic floor and core stabilization exercises Plan of Care Dates Plan of Care Start Date 07/02/23 Plan of Care End Date 09/24/23 Electronically Signed by: Laura Oleary, PT 07/07/23 0187 If you are in agreement with this Plan of Care, please return a signed and dated copy. I have reviewed this Plan of Care and certify that the skilled therapy services above are required to meet the patient?s needs. Physician Signature Date Printed Name and Credentials Clinical Instructor Signature Printed Name and Credentials
--- NOTE | 2023-07-09 16:43 | PT.OTN ---
Current Diagnoses Mixed incontinence (07/09/23) Pelvic muscle wasting (07/09/23) Weakness (07/09/23) Physical Therapy Treatment Note PT-OP-A Visit Information Start: 06/25/23 08:07 Freq: Status: Active Protocol: Document 07/09/23 13:48 [facility] (Rec: 07/09/23 14:29 [facility] [id number]) Out-Patient Physical Therapy Visit Information Visit Information Visit Type Treatment Note Visit Start Time 13:45 Visit Stop Time 14:30 Visit Number 2 PT-OP-B Current Condition Start: 06/25/23 08:07 Freq: Status: Active Protocol: Document 07/02/23 13:49 [facility] (Rec: 07/02/23 14:39 [facility] [id number]) Current Condition History of Current Condition Onset Date 2 years ago History of Current Condition two years ago symptoms started having symptoms or urinary incontinence, she notes if she goes to the bathroom every hour her symptoms are better. If she lifts something heavy there is no control. THings like lifting bird or dog feed or fertilizer cause leakage, grocerys. Treatment Goals Patient/Caregiver Goals pt's goals are to reduce urinary leakage and to be able to lift her bird seed and dog food without leakage PT-OP-C Subjective Start: 06/25/23 08:07 Freq: Status: Active Protocol: Document 07/09/23 13:48 [facility] (Rec: 07/09/23 14:29 [facility] [id number]) OP-PT Subjective Patient Comments Patient Comments pt notes it seems to be a little better, she can't find her exercises sheets and needs new ones. She notes the quick contractions prior to standing have been really helpful PT-OP-F Manual Assessment Start: 06/25/23 08:07 Freq: Status: Active Protocol: Document 07/02/23 13:45 [facility] (Rec: 07/07/23 16:40 [facility] [id number]) Manual Assessments Soft Tissue Assessment Soft Tissue Mobility Assessment There is tightness and guarding of the abdominal fascia and suprapubic fascia, Mary reports she has prunes daily for bowel movements PT-OP-I Pelvic Floor Start: 06/25/23 08:07 Freq: Status: Active Protocol: Document 07/02/23 13:45 [facility] (Rec: 07/07/23 16:40 [facility] [id number]) Pelvic Floor Assessment Urine Other Urinary Symptoms urinary leakage that pt describes as constant throughout the day but does worsen with lifting. Leakage Size Large Leakage Cause Lifting Leaks Per Day 4 Voiding Frequency 8 Nocturia 2 Pads Used In 24 Hours 5 Urine Pad Type Maxi Pad Contraction Ability Voluntary Contraction Weak Voluntary Relaxation Weak Muscle Endurance (Seconds) 5 Comments Pelvic Floor Comments external pelvic floor assessment done today. Mary is able to contract her pelvic floor however she has difficulty sustaining a pelvic floor contraction greater than 5 seconds in supine Mary also emptys her bladder frequently prior to experiencing the urge to void. The volume of urine passed is usually very small to small . PT-OP-M Strength Start: 06/25/23 08:07 Freq: Status: Active Protocol: Document 07/02/23 13:45 [facility] (Rec: 07/07/23 16:41 [facility] [id number]) Trunk Strength Trunk Manual Muscle Testing Flexion 2+ Poor+ Hip Strength Hip Manual Muscle Testing Right Flexion (L2) 3 Fair Abduction 3 Fair Left Flexion (L2) 3 Fair Abduction 3 Fair PT-OP-Q Treatments Start: 06/25/23 08:07 Freq: Status: Active Protocol: Document 07/09/23 13:48 [facility] (Rec: 07/09/23 14:29 [facility] [id number]) Therapeutic Exercises Supine Exercises supine roll outs Reps/Minutes x 20 reps bridge with ball squeeze Reps/Minutes x 10 reps modified single knee to chest Reps/Minutes 2 reps holding 30 sec pelvic floor quick contractions Reps/Minutes x 10 reps holding 2 seconds and relaxing 2 seconds Sitting Exercises seated hip roll outs Reps/Minutes x 20 reps Self-Care/Home Management Treatment Education Patient Education Home Exercise Program PT-OP-T Assessment and Plan Start: 06/25/23 08:07 Freq: Status: Active Protocol: Document 07/09/23 16:40 [facility] (Rec: 07/09/23 16:43 [facility] [id number]) Physical Therapy Assessment Assessment Summary Assessment Mary is tolerating exercises well and is feeling that the urge deference technique is helping her. We will continue working on pelvic floor endurance and hip strengthening Physical Therapy Plan Frequency and Duration Frequency of Treatment 1x/Week Duration of treatment (weeks) 12 Plan of Care Start Date 07/02/23 Plan of Care End Date 09/24/23 Therapeutic Interventions Therapeutic Interventions Home Exercise Program, Neuromuscular Re-education, Patient/Caregiver Education, Self-Care/Home Management, Therapeutic Exercises Modalities Biofeedback Next Visit Focus/Plan Next Note Type Treatment Note Next Visit Plan review new exercises and continue to progress as Mary can tolerate
--- NOTE | 2023-07-16 15:36 | PT.OTN ---
Current Diagnoses Mixed incontinence (07/16/23) Pelvic muscle wasting (07/16/23) Weakness (07/16/23) Physical Therapy Treatment Note PT-OP-A Visit Information Start: 06/25/23 08:07 Freq: Status: Active Protocol: Document 07/16/23 13:41 [facility] (Rec: 07/16/23 14:30 [facility] [id number]) Out-Patient Physical Therapy Visit Information Visit Information Visit Type Treatment Note Visit Start Time 13:45 Visit Stop Time 14:30 Visit Number 3 PT-OP-B Current Condition Start: 06/25/23 08:07 Freq: Status: Active Protocol: Document 07/02/23 13:49 [facility] (Rec: 07/02/23 14:39 [facility] [id number]) Current Condition History of Current Condition Onset Date 2 years ago History of Current Condition two years ago symptoms started having symptoms or urinary incontinence, she notes if she goes to the bathroom every hour her symptoms are better. If she lifts something heavy there is no control. THings like lifting bird or dog feed or fertilizer cause leakage, grocerys. Treatment Goals Patient/Caregiver Goals pt's goals are to reduce urinary leakage and to be able to lift her bird seed and dog food without leakage PT-OP-C Subjective Start: 06/25/23 08:07 Freq: Status: Active Protocol: Document 07/16/23 13:41 [facility] (Rec: 07/16/23 14:30 [facility] [id number]) OP-PT Subjective Patient Comments Patient Comments She feels like she is improving, she has been working on the urge deference technique PT-OP-F Manual Assessment Start: 06/25/23 08:07 Freq: Status: Active Protocol: Document 07/02/23 13:45 [facility] (Rec: 07/07/23 16:40 [facility] [id number]) Manual Assessments Soft Tissue Assessment Soft Tissue Mobility Assessment There is tightness and guarding of the abdominal fascia and suprapubic fascia, Mary reports she has prunes daily for bowel movements PT-OP-I Pelvic Floor Start: 06/25/23 08:07 Freq: Status: Active Protocol: Document 07/02/23 13:45 [facility] (Rec: 07/07/23 16:40 [facility] [id number]) Pelvic Floor Assessment Urine Other Urinary Symptoms urinary leakage that pt describes as constant throughout the day but does worsen with lifting. Leakage Size Large Leakage Cause Lifting Leaks Per Day 4 Voiding Frequency 8 Nocturia 2 Pads Used In 24 Hours 5 Urine Pad Type Maxi Pad Contraction Ability Voluntary Contraction Weak Voluntary Relaxation Weak Muscle Endurance (Seconds) 5 Comments Pelvic Floor Comments external pelvic floor assessment done today. Mary is able to contract her pelvic floor however she has difficulty sustaining a pelvic floor contraction greater than 5 seconds in supine Mary also emptys her bladder frequently prior to experiencing the urge to void. The volume of urine passed is usually very small to small . PT-OP-M Strength Start: 06/25/23 08:07 Freq: Status: Active Protocol: Document 07/02/23 13:45 [facility] (Rec: 07/07/23 16:41 [facility] [id number]) Trunk Strength Trunk Manual Muscle Testing Flexion 2+ Poor+ Hip Strength Hip Manual Muscle Testing Right Flexion (L2) 3 Fair Abduction 3 Fair Left Flexion (L2) 3 Fair Abduction 3 Fair PT-OP-Q Treatments Start: 06/25/23 08:07 Freq: Status: Active Protocol: Document 07/16/23 13:41 [facility] (Rec: 07/16/23 14:30 [facility] [id number]) Therapeutic Exercises Supine Exercises TA with SLR Reps/Minutes x 5 each side supine roll outs Reps/Minutes x 20 reps bridge with ball squeeze Reps/Minutes x 10 reps modified single knee to chest Reps/Minutes 2 reps holding 30 sec pelvic floor quick contractions Reps/Minutes x 10 reps holding 2 seconds and relaxing 2 seconds supine ball squeeze with pelvic floor contraction Reps/Minutes x 10 reps Sitting Exercises seated hip roll outs Reps/Minutes x 20 reps seated pelvic floor contractions Reps/Minutes 10 reps 2 sec on 2 sec off Comments pt to do 10 contractions prior to standing up out of her chair Self-Care/Home Management Treatment Education Patient Education Home Exercise Program Other Education education on urge deference technique and bladder retraining PT-OP-T Assessment and Plan Start: 06/25/23 08:07 Freq: Status: Active Protocol: Document 07/16/23 15:35 [facility] (Rec: 07/16/23 15:36 [facility] [id number]) Physical Therapy Assessment Assessment Summary Assessment I added on with urge deference technique and bladder retraining for Mary. She is also working on decreasing the amount of coffee she is drinking. She will work on the urge technique for a week and then begin trying to delay the urge to go for 10 min. Physical Therapy Plan Frequency and Duration Frequency of Treatment 1x/Week Duration of treatment (weeks) 12 Plan of Care Start Date 07/02/23 Plan of Care End Date 09/24/23 Therapeutic Interventions Therapeutic Interventions Home Exercise Program, Neuromuscular Re-education, Patient/Caregiver Education, Self-Care/Home Management, Therapeutic Exercises Modalities Biofeedback Next Visit Focus/Plan Next Note Type Treatment Note Next Visit Plan check in with how Mary did with the urge deference technique and with bladder irritants, continue working on pelvic floor and hip strengthening.
--- NOTE | 2023-08-06 11:16 | PT.OTN ---
Current Diagnoses Mixed incontinence (08/06/23) Pelvic muscle wasting (08/06/23) Weakness (08/06/23) Physical Therapy Treatment Note PT-OP-A Visit Information Start: 06/25/23 08:07 Freq: Status: Active Protocol: Document 08/06/23 10:31 [facility] (Rec: 08/06/23 11:12 [facility] [id number]) Out-Patient Physical Therapy Visit Information Visit Information Visit Type Treatment Note Visit Start Time 10:30 Visit Stop Time 11:15 Visit Number 4 PT-OP-B Current Condition Start: 06/25/23 08:07 Freq: Status: Active Protocol: Document 07/02/23 13:49 [facility] (Rec: 07/02/23 14:39 [facility] [id number]) Current Condition History of Current Condition Onset Date 2 years ago History of Current Condition two years ago symptoms started having symptoms or urinary incontinence, she notes if she goes to the bathroom every hour her symptoms are better. If she lifts something heavy there is no control. THings like lifting bird or dog feed or fertilizer cause leakage, grocerys. Treatment Goals Patient/Caregiver Goals pt's goals are to reduce urinary leakage and to be able to lift her bird seed and dog food without leakage PT-OP-C Subjective Start: 06/25/23 08:07 Freq: Status: Active Protocol: Document 08/06/23 10:31 [facility] (Rec: 08/06/23 11:12 [facility] [id number]) OP-PT Subjective Patient Comments Patient Comments She is improving on her bladder control but she is only able to get it in one time per day. PT-OP-F Manual Assessment Start: 06/25/23 08:07 Freq: Status: Active Protocol: Document 07/02/23 13:45 [facility] (Rec: 07/07/23 16:40 [facility] [id number]) Manual Assessments Soft Tissue Assessment Soft Tissue Mobility Assessment There is tightness and guarding of the abdominal fascia and suprapubic fascia, Mary reports she has prunes daily for bowel movements PT-OP-I Pelvic Floor Start: 06/25/23 08:07 Freq: Status: Active Protocol: Document 07/02/23 13:45 [facility] (Rec: 07/07/23 16:40 [facility] [id number]) Pelvic Floor Assessment Urine Other Urinary Symptoms urinary leakage that pt describes as constant throughout the day but does worsen with lifting. Leakage Size Large Leakage Cause Lifting Leaks Per Day 4 Voiding Frequency 8 Nocturia 2 Pads Used In 24 Hours 5 Urine Pad Type Maxi Pad Contraction Ability Voluntary Contraction Weak Voluntary Relaxation Weak Muscle Endurance (Seconds) 5 Comments Pelvic Floor Comments external pelvic floor assessment done today. Mary is able to contract her pelvic floor however she has difficulty sustaining a pelvic floor contraction greater than 5 seconds in supine Mary also emptys her bladder frequently prior to experiencing the urge to void. The volume of urine passed is usually very small to small . PT-OP-M Strength Start: 06/25/23 08:07 Freq: Status: Active Protocol: Document 07/02/23 13:45 [facility] (Rec: 07/07/23 16:41 [facility] [id number]) Trunk Strength Trunk Manual Muscle Testing Flexion 2+ Poor+ Hip Strength Hip Manual Muscle Testing Right Flexion (L2) 3 Fair Abduction 3 Fair Left Flexion (L2) 3 Fair Abduction 3 Fair PT-OP-Q Treatments Start: 06/25/23 08:07 Freq: Status: Active Protocol: Document 08/06/23 10:31 [facility] (Rec: 08/06/23 11:12 [facility] [id number]) Therapeutic Exercises Supine Exercises TA with SLR Reps/Minutes x 10 reps supine roll outs Reps/Minutes x 20 reps bridge with ball squeeze Supine Exercise Name this exercises was painful for Mary to do Reps/Minutes x 10 reps modified single knee to chest Reps/Minutes 2 reps holding 30 sec pelvic floor quick contractions Reps/Minutes x 10 reps holding 2 seconds and relaxing 2 seconds supine ball squeeze with pelvic floor contraction Reps/Minutes x 10 reps Sitting Exercises seated hip roll outs Reps/Minutes x 20 reps seated pelvic floor contractions Reps/Minutes 10 reps 2 sec on 2 sec off Comments pt to do 10 contractions prior to standing up out of her chair PT-OP-T Assessment and Plan Start: 06/25/23 08:07 Freq: Status: Active Protocol: Document 08/06/23 10:31 [facility] (Rec: 08/06/23 11:12 [facility] [id number]) Physical Therapy Assessment Goals 3 Impairment mary lacks a home exercise program for pelvic floor and core strengthening [employer]er Goal (LTG) Mary is independent with a home program for pelvic floor and core strength training LTG Duration 12 weeks 2 Impairment urinary leakage that is constant throughout the day but made worse with lifting, using 4-5 poise pads per day Short Term Goal (STG) Mary is educated on tightening her pelvic floor prior to lifting and prior to a cough or sneeze STG Duration 5 weeks Retirement Goal (LTG) Mary has been able to reduce her complaints of urinary leakage and she is down to 1-2 poise pads per day LTG Duration 12 weeks 1 Impairment Decreased pelvic floor endurance Short Term Goal (STG) Mary is able to sustain a pelvic floor contraction for 10 seconds in supine STG Duration 5 weeks [employer] P[employer]er Goal (LTG) Mary is able to perform a pelvic floor contraction in standing prior to lifting her bird seed or dog food LTG Duration 12 weeks Assessment Summary Assessment Mary is making great overall progress and is not noting the leakage she was experiencing. She is finding it difficult to lay down to do her exercsises so wer practiced today in a sitting position and she did well with this Physical Therapy Plan Frequency and Duration Frequency of Treatment 1x/Week Duration of treatment (weeks) 12 Plan of Care Start Date 07/02/23 Plan of Care End Date 09/24/23 Next Visit Focus/Plan Next Note Type Treatment Note Next Visit Plan review sit-stand with pelvic floor activation and continue with hip and pelvic floor strengthening
--- NOTE | 2023-09-16 12:22 | PT.OTN ---
Current Diagnoses Mixed incontinence (09/16/23) Pelvic muscle wasting (09/16/23) Weakness (09/16/23) Physical Therapy Treatment Note PT-OP-A Visit Information Start: 06/25/23 08:07 Freq: Status: Active Protocol: Document 09/16/23 12:19 [facility] (Rec: 09/16/23 12:22 [facility] [id number]) Out-Patient Physical Therapy Visit Information Visit Information Visit Type Treatment Note Visit Start Time 10:35 Visit Stop Time 11:15 Visit Number 5 PT-OP-B Current Condition Start: 06/25/23 08:07 Freq: Status: Active Protocol: Document 07/02/23 13:49 [facility] (Rec: 07/02/23 14:39 [facility] [id number]) Current Condition History of Current Condition Onset Date 2 years ago History of Current Condition two years ago symptoms started having symptoms or urinary incontinence, she notes if she goes to the bathroom every hour her symptoms are better. If she lifts something heavy there is no control. THings like lifting bird or dog feed or fertilizer cause leakage, grocerys. Treatment Goals Patient/Caregiver Goals pt's goals are to reduce urinary leakage and to be able to lift her bird seed and dog food without leakage PT-OP-C Subjective Start: 06/25/23 08:07 Freq: Status: Active Protocol: Document 09/16/23 10:50 [facility] (Rec: 09/16/23 11:17 [facility] [id number]) OP-PT Subjective Patient Comments Patient Comments pt reports it takes a long time to get the stream going when voiding, she has not had much leakage. She does still wear pads. Towards the end of the day she notes more fatigue and if she is going to leak it will be at the end of the day. PT-OP-F Manual Assessment Start: 06/25/23 08:07 Freq: Status: Active Protocol: Document 07/02/23 13:45 [facility] (Rec: 07/07/23 16:40 [facility] [id number]) Manual Assessments Soft Tissue Assessment Soft Tissue Mobility Assessment There is tightness and guarding of the abdominal fascia and suprapubic fascia, Mary reports she has prunes daily for bowel movements PT-OP-I Pelvic Floor Start: 06/25/23 08:07 Freq: Status: Active Protocol: Document 07/02/23 13:45 [facility] (Rec: 07/07/23 16:40 [facility] [id number]) Pelvic Floor Assessment Urine Other Urinary Symptoms urinary leakage that pt describes as constant throughout the day but does worsen with lifting. Leakage Size Large Leakage Cause Lifting Leaks Per Day 4 Voiding Frequency 8 Nocturia 2 Pads Used In 24 Hours 5 Urine Pad Type Maxi Pad Contraction Ability Voluntary Contraction Weak Voluntary Relaxation Weak Muscle Endurance (Seconds) 5 Comments Pelvic Floor Comments external pelvic floor assessment done today. Mary is able to contract her pelvic floor however she has difficulty sustaining a pelvic floor contraction greater than 5 seconds in supine Mary also emptys her bladder frequently prior to experiencing the urge to void. The volume of urine passed is usually very small to small . PT-OP-M Strength Start: 06/25/23 08:07 Freq: Status: Active Protocol: Document 07/02/23 13:45 [facility] (Rec: 07/07/23 16:41 [facility] [id number]) Trunk Strength Trunk Manual Muscle Testing Flexion 2+ Poor+ Hip Strength Hip Manual Muscle Testing Right Flexion (L2) 3 Fair Abduction 3 Fair Left Flexion (L2) 3 Fair Abduction 3 Fair PT-OP-Q Treatments Start: 06/25/23 08:07 Freq: Status: Active Protocol: Document 09/16/23 10:50 [facility] (Rec: 09/16/23 11:17 [facility] [id number]) Therapeutic Exercises Supine Exercises TA with SLR Reps/Minutes x 10 reps pelvic floor quick contractions Reps/Minutes x 10 reps holding 2 seconds and relaxing 2 seconds Standing Exercises standing side steps Reps/Minutes 20 reps standing mini squats Reps/Minutes 2 x 10 reps PT-OP-T Assessment and Plan Start: 06/25/23 08:07 Freq: Status: Active Protocol: Document 09/16/23 12:19 [facility] (Rec: 09/16/23 12:22 [facility] [id number]) Physical Therapy Assessment Assessment Summary Assessment Mary continues to make good progress with therapy and leakage has decreased. I added onto her program with standing pelvic floor engagement with squats and sidesteps today Physical Therapy Plan Frequency and Duration Frequency of Treatment 1x/Week Duration of treatment (weeks) 12 Plan of Care Start Date 07/02/23 Plan of Care End Date 09/24/23 Therapeutic Interventions Therapeutic Interventions Home Exercise Program, Neuromuscular Re-education, Patient/Caregiver Education, Self-Care/Home Management, Therapeutic Exercises Modalities Biofeedback Next Visit Focus/Plan Next Note Type Progress Note Next Visit Plan review sit-stand with pelvic floor activation and continue with hip and pelvic floor strengthening
--- NOTE | 2023-09-24 16:56 | PT.OTN ---
Current Diagnoses Mixed incontinence (09/24/23) Pelvic muscle wasting (09/24/23) Weakness (09/24/23) Physical Therapy Treatment Note PT-OP-A Visit Information Start: 06/25/23 08:07 Freq: Status: Active Protocol: Document 09/24/23 13:50 [facility] (Rec: 09/24/23 14:26 [facility] [id number]) Out-Patient Physical Therapy Visit Information Visit Information Visit Type Progress Note Visit Start Time 13:50 Visit Stop Time 14:30 Visit Number 6 PT-OP-B Current Condition Start: 06/25/23 08:07 Freq: Status: Active Protocol: Document 07/02/23 13:49 [facility] (Rec: 07/02/23 14:39 [facility] [id number]) Current Condition History of Current Condition Onset Date 2 years ago History of Current Condition two years ago symptoms started having symptoms or urinary incontinence, she notes if she goes to the bathroom every hour her symptoms are better. If she lifts something heavy there is no control. THings like lifting bird or dog feed or fertilizer cause leakage, grocerys. Treatment Goals Patient/Caregiver Goals pt's goals are to reduce urinary leakage and to be able to lift her bird seed and dog food without leakage PT-OP-C Subjective Start: 06/25/23 08:07 Freq: Status: Active Protocol: Document 09/24/23 13:50 [facility] (Rec: 09/24/23 14:26 [facility] [id number]) OP-PT Subjective Patient Comments Patient Comments Mary notes she stil gets the urge but is able to do the squeezes and it helps. Her pads are slighly damp now instead of fully being wet and she is noting improvement with her exercises Patient Reported Progress Improving PT-OP-F Manual Assessment Start: 06/25/23 08:07 Freq: Status: Active Protocol: Document 07/02/23 13:45 [facility] (Rec: 07/07/23 16:40 [facility] [id number]) Manual Assessments Soft Tissue Assessment Soft Tissue Mobility Assessment There is tightness and guarding of the abdominal fascia and suprapubic fascia, Mary reports she has prunes daily for bowel movements PT-OP-I Pelvic Floor Start: 06/25/23 08:07 Freq: Status: Active Protocol: Document 07/02/23 13:45 [facility] (Rec: 07/07/23 16:40 [facility] [id number]) Pelvic Floor Assessment Urine Other Urinary Symptoms urinary leakage that pt describes as constant throughout the day but does worsen with lifting. Leakage Size Large Leakage Cause Lifting Leaks Per Day 4 Voiding Frequency 8 Nocturia 2 Pads Used In 24 Hours 5 Urine Pad Type Maxi Pad Contraction Ability Voluntary Contraction Weak Voluntary Relaxation Weak Muscle Endurance (Seconds) 5 Comments Pelvic Floor Comments external pelvic floor assessment done today. Mary is able to contract her pelvic floor however she has difficulty sustaining a pelvic floor contraction greater than 5 seconds in supine Mary also emptys her bladder frequently prior to experiencing the urge to void. The volume of urine passed is usually very small to small . PT-OP-M Strength Start: 06/25/23 08:07 Freq: Status: Active Protocol: Document 07/02/23 13:45 [facility] (Rec: 07/07/23 16:41 [facility] [id number]) Trunk Strength Trunk Manual Muscle Testing Flexion 2+ Poor+ Hip Strength Hip Manual Muscle Testing Right Flexion (L2) 3 Fair Abduction 3 Fair Left Flexion (L2) 3 Fair Abduction 3 Fair PT-OP-Q Treatments Start: 06/25/23 08:07 Freq: Status: Active Protocol: Document 09/24/23 13:50 [facility] (Rec: 09/24/23 14:26 [facility] [id number]) Therapeutic Exercises Supine Exercises TA with SLR Reps/Minutes 2 x 10 reps bridge with ball squeeze Supine Exercise Name this exercises was painful for Mary to do Reps/Minutes x 10 reps modified single knee to chest Reps/Minutes 2 reps holding 30 sec Sitting Exercises seated ball squeeze Reps/Minutes x 10 reps holding 5 seconds each seated hip roll outs Reps/Minutes x 20 reps seated pelvic floor contractions Reps/Minutes 10 reps 2 sec on 2 sec off Comments pt to do 10 contractions prior to standing up out of her chair Standing Exercises standing side steps Reps/Minutes 20 reps standing mini squats Reps/Minutes 2 x 10 reps PT-OP-T Assessment and Plan Start: 06/25/23 08:07 Freq: Status: Active Protocol: Document 09/24/23 13:50 [facility] (Rec: 09/24/23 16:24 [facility] [id number]) Physical Therapy Assessment Goals 3 Impairment mary lacks a home exercise program for pelvic floor and core strengthening Custodial Goal (LTG) Mary is independent with a home program for pelvic floor and core strength training excellent progress LTG Duration 12 weeks 2 Impairment urinary leakage that is constant throughout the day but made worse with lifting, using 4-5 poise pads per day Short Term Goal (STG) Mary is educated on tightening her pelvic floor prior to lifting and prior to a cough or sneeze goal met and Mary is working on pelvic floor bracing prior to cough or sneeze STG Duration 5 weeks [employer]er Goal (LTG) Mary has been able to reduce her complaints of urinary leakage and she is down to 1-2 poise pads per day excellent progress and now working to just one pad per day LTG Duration 12 weeks 1 Impairment Decreased pelvic floor endurance Short Term Goal (STG) Mary is able to sustain a pelvic floor contraction for 10 seconds in supine excellent progress STG Duration 5 weeks [employer] St[employer] As[employer]er Goal (LTG) Mary is able to perform a pelvic floor contraction in standing prior to lifting her bird seed or dog food some progress LTG Duration 12 weeks Assessment Summary Assessment Mary has been seen for 6 visits in PT. She feels she is doing really well with her exercises and is starting to notice a difference in her symptoms. She is not as wet now in her pads and notes they are just a bit damp. Her pelvic floor strength is improving and she is demonstrating improved pelvic floor endurance. She would benefit from continued PT Physical Therapy Plan Frequency and Duration Frequency of Treatment 1x/Week Duration of treatment (weeks) 4 Plan of Care Start Date 09/24/23 Plan of Care End Date 10/22/23 Therapeutic Interventions Therapeutic Interventions Home Exercise Program, Neuromuscular Re-education, Patient/Caregiver Education, Self-Care/Home Management, Therapeutic Exercises Modalities Biofeedback
--- NOTE | 2023-09-24 16:57 | PT.OPPOC ---
Physical, Occupational & Speech Therapy At [facility] Current Diagnoses Mixed incontinence (09/24/23) Pelvic muscle wasting (09/24/23) Weakness (09/24/23) Visit Care Team Role Provider Type Micky Bautista MD Primary Care Provider Non-Staff Specialty: Family Practice Address: [address] [place] [address], [place], [address] Email: Jos Fox MD Attending Provider Non-Staff Family Provider Referring Provider Specialty: Internal Medicine Address: [address] [place], [place] [address]sh[address], [place], [address] Email: Plan Of Care PT-OP-T Assessment and Plan Start: 06/25/23 08:07 Freq: Status: Active Protocol: Document 09/24/23 13:50 [facility] (Rec: 09/24/23 16:24 [facility] [id number]) Physical Therapy Assessment Goals 3 Impairment mary lacks a home exercise program for pelvic floor and core strengthening Intermediate Goal (LTG) Mary is independent with a home program for pelvic floor and core strength training excellent progress LTG Duration 12 weeks 2 Impairment urinary leakage that is constant throughout the day but made worse with lifting, using 4-5 poise pads per day Short Term Goal (STG) Mary is educated on tightening her pelvic floor prior to lifting and prior to a cough or sneeze goal met and Mary is working on pelvic floor bracing prior to cough or sneeze STG Duration 5 weeks Intermediate Goal (LTG) Mary has been able to reduce her complaints of urinary leakage and she is down to 1-2 poise pads per day excellent progress and now working to just one pad per day LTG Duration 12 weeks 1 Impairment Decreased pelvic floor endurance Short Term Goal (STG) Mary is able to sustain a pelvic floor contraction for 10 seconds in supine excellent progress STG Duration 5 weeks Intermediate Goal (LTG) Mary is able to perform a pelvic floor contraction in standing prior to lifting her bird seed or dog food some progress LTG Duration 12 weeks Assessment Summary Assessment Mary has been seen for 6 visits in PT. She feels she is doing really well with her exercises and is starting to notice a difference in her symptoms. She is not as wet now in her pads and notes they are just a bit damp. Her pelvic floor strength is improving and she is demonstrating improved pelvic floor endurance. She would benefit from continued PT Physical Therapy Plan Frequency and Duration Frequency of Treatment 1x/Week Duration of treatment (weeks) 4 Plan of Care Start Date 09/24/23 Plan of Care End Date 10/22/23 Therapeutic Interventions Therapeutic Interventions Home Exercise Program, Neuromuscular Re-education, Patient/Caregiver Education, Self-Care/Home Management, Therapeutic Exercises Modalities Biofeedback Plan of Care Dates Plan of Care Start Date 09/24/23 Plan of Care End Date 10/22/23 Electronically Signed by: Laura Oleary, PT 09/29/23 [id number] If you are in agreement with this Plan of Care, please return a signed and dated copy. I have reviewed this Plan of Care and certify that the skilled therapy services above are required to meet the patient?s needs. Physician Signature Date Printed Name and Credentials Clinical Instructor Signature Printed Name and Credentials
--- NOTE | 2023-10-01 13:47 | PT.OTN ---
Current Diagnoses Mixed incontinence (10/01/23) Pelvic muscle wasting (10/01/23) Weakness (10/01/23) Physical Therapy Treatment Note PT-OP-A Visit Information Start: 06/25/23 08:07 Freq: Status: Active Protocol: Document 10/01/23 13:00 [facility] (Rec: 10/01/23 13:46 [facility] [id number]) Out-Patient Physical Therapy Visit Information Visit Information Visit Type Treatment Note Visit Start Time 13:00 Visit Stop Time 13:45 Visit Number 7 PT-OP-B Current Condition Start: 06/25/23 08:07 Freq: Status: Active Protocol: Document 07/02/23 13:49 [facility] (Rec: 07/02/23 14:39 [facility] [id number]) Current Condition History of Current Condition Onset Date 2 years ago History of Current Condition two years ago symptoms started having symptoms or urinary incontinence, she notes if she goes to the bathroom every hour her symptoms are better. If she lifts something heavy there is no control. THings like lifting bird or dog feed or fertilizer cause leakage, grocerys. Treatment Goals Patient/Caregiver Goals pt's goals are to reduce urinary leakage and to be able to lift her bird seed and dog food without leakage PT-OP-C Subjective Start: 06/25/23 08:07 Freq: Status: Active Protocol: Document 10/01/23 13:00 [facility] (Rec: 10/01/23 13:46 [facility] [id number]) OP-PT Subjective Patient Comments Patient Comments Mary reports she has been doing her exercises and is feeling independent with them. PT-OP-F Manual Assessment Start: 06/25/23 08:07 Freq: Status: Active Protocol: Document 07/02/23 13:45 [facility] (Rec: 07/07/23 16:40 [facility] [id number]) Manual Assessments Soft Tissue Assessment Soft Tissue Mobility Assessment There is tightness and guarding of the abdominal fascia and suprapubic fascia, Mary reports she has prunes daily for bowel movements PT-OP-I Pelvic Floor Start: 06/25/23 08:07 Freq: Status: Active Protocol: Document 07/02/23 13:45 [facility] (Rec: 07/07/23 16:40 [facility] [id number]) Pelvic Floor Assessment Urine Other Urinary Symptoms urinary leakage that pt describes as constant throughout the day but does worsen with lifting. Leakage Size Large Leakage Cause Lifting Leaks Per Day 4 Voiding Frequency 8 Nocturia 2 Pads Used In 24 Hours 5 Urine Pad Type Maxi Pad Contraction Ability Voluntary Contraction Weak Voluntary Relaxation Weak Muscle Endurance (Seconds) 5 Comments Pelvic Floor Comments external pelvic floor assessment done today. Mary is able to contract her pelvic floor however she has difficulty sustaining a pelvic floor contraction greater than 5 seconds in supine Mary also emptys her bladder frequently prior to experiencing the urge to void. The volume of urine passed is usually very small to small . PT-OP-M Strength Start: 06/25/23 08:07 Freq: Status: Active Protocol: Document 07/02/23 13:45 [facility] (Rec: 07/07/23 16:41 [facility] [id number]) Trunk Strength Trunk Manual Muscle Testing Flexion 2+ Poor+ Hip Strength Hip Manual Muscle Testing Right Flexion (L2) 3 Fair Abduction 3 Fair Left Flexion (L2) 3 Fair Abduction 3 Fair PT-OP-Q Treatments Start: 06/25/23 08:07 Freq: Status: Active Protocol: Document 10/01/23 13:00 [facility] (Rec: 10/01/23 13:46 [facility] [id number]) Therapeutic Exercises Supine Exercises TA with SLR Reps/Minutes 2 x 10 reps supine roll outs Reps/Minutes x 20 reps bridge with ball squeeze Supine Exercise Name this exercises was painful for Mary to do Reps/Minutes x 10 reps modified single knee to chest Reps/Minutes 2 reps holding 30 sec pelvic floor quick contractions Reps/Minutes x 10 reps holding 2 seconds and relaxing 2 seconds supine ball squeeze with pelvic floor contraction Reps/Minutes x 10 reps Sitting Exercises seated ball squeeze Reps/Minutes x 10 reps holding 5 seconds each seated hip roll outs Reps/Minutes x 20 reps seated pelvic floor contractions Reps/Minutes 10 reps 2 sec on 2 sec off Comments pt to do 10 contractions prior to standing up out of her chair Standing Exercises standing side steps Reps/Minutes 20 reps standing mini squats Reps/Minutes 2 x 10 reps PT-OP-T Assessment and Plan Start: 06/25/23 08:07 Freq: Status: Active Protocol: Document 10/01/23 13:00 [facility] (Rec: 10/01/23 13:46 [facility] [id number]) Physical Therapy Assessment Goals 3 Impairment mary lacks a home exercise program for pelvic floor and core strengthening Leader Writer Goal (LTG) Mary is independent with a home program for pelvic floor and core strength training goal met LTG Duration 12 weeks 2 Impairment urinary leakage that is constant throughout the day but made worse with lifting, using 4-5 poise pads per day Short Term Goal (STG) Mary is educated on tightening her pelvic floor prior to lifting and prior to a cough or sneeze goal met and Mary is working on pelvic floor bracing prior to cough or sneeze STG Duration 5 weeks Leader Writer Goal (LTG) Mary has been able to reduce her complaints of urinary leakage and she is down to 1-2 poise pads per day excellent progress and now working to just one pad per day LTG Duration 12 weeks 1 Impairment Decreased pelvic floor endurance Short Term Goal (STG) Mary is able to sustain a pelvic floor contraction for 10 seconds in supine excellent progress STG Duration 5 weeks Senior Care Goal (LTG) Mary is able to perform a pelvic floor contraction in standing prior to lifting her bird seed or dog food some progress LTG Duration 12 weeks Assessment Summary Assessment Mary has made good progress with physical therapy and she notes she is not leaking as much. She is independent with her home program at this time and will continue with her exercises on her own at home. Physical Therapy Plan Discharge Physical Therapy Discharge Reasons Goals Met
== END 2024-06-17 09:56 | disposition home or self-care (01) ==
LOC: PHYS 13:00
PROVIDERS: Family Provider Internal Medicine; PCP Family Medicine; Referring Provider Internal Medicine; Visit Provider Internal Medicine
DX: N39.46 Mixed incontinence (principal); N81.84 Pelvic muscle wasting; R53.1 Weakness
CPT/HCPCS: 97110; 97161; 97535